=== PATIENT | female | born 1965 | race Caucasian/White ===

== ENCOUNTER 2019-06-15 14:16 | Outpatient (CLI) | payer MEDICARE, SELFPAY | END 2019-06-15 14:17 | disposition home or self-care (01) | LOC: ONCMED 14:20 | PROVIDERS: Family Provider Family Medicine; PCP Family Medicine; Visit Provider Nurse Practitioner | DX: Z45.2 Encounter for adjustment and management of vascular access device (principal) | CPT/HCPCS: 96523 ==

== ENCOUNTER 2019-07-28 07:58 | Outpatient (CLI) | payer MEDICARE, SELFPAY ==
[2019-07-28 08:29] LABS: Basophils % 0.3 %; Eosinophils # 0.2 10^3/uL (0.0-0.8); Eosinophils % 3.1 %; Hematocrit 35.2 % (37.0-47.0); Hemoglobin 11.5 g/dL (11.5-15.3); Lymphocytes # 2.3 10^3/uL (0.8-4.8); Lymphocytes % 39.9 %; Mean Corpuscular HGB Conc 32.7 g/dL (30.0-36.0); Mean Corpuscular Hemoglobin 32.4 pg (28.0-34.0); Mean Corpuscular Volume 99.2 fL (81-99); Monocytes # 0.5 10^3/uL (0.2-0.9); Monocytes % 7.7 %; Neutrophils # 2.8 10^3/uL (1.8-7.7); Neutrophils % 48.7 %; Nucleated Red Blood Cells % 0 %; Platelet Count 226 10^3/cmm (130-400); Red Blood Count 3.55 10^6/uL (4.1-5.3); Red Cell Distribution Width 14.4 % (12.1-15.1); White Blood Count 5.8 10^3/uL (4.0-10.0)
[2019-07-28 08:35] LABS: Alanine Aminotransferase 26 U/L (0-33); Albumin Level 4.5 g/dL (3.5-5.2); Alkaline Phosphatase 84 IU/L (35-105); Anion Gap 14.1 (5-19); Aspartate Amino Transferase 21 U/L (0-32); Blood Urea Nitrogen 11 mg/dL (6-20); Calcium 9.6 mg/dL (8.5-10.5); Carbon Dioxide 28 mmol/L (22-29); Chloride 100 mmol/L (98-107); Glomerular Filtration Rate 74.5 mL/min (90-130); Glucose 109 mg/dL (65-115); Potassium 4.1 mmol/L (3.5-5.1); Sodium 138 mmol/L (136-145); Total Bilirubin 0.2 mg/dL (0.15-1.2); Total Protein 7.5 g/dL (6.6-8.7)
[2019-07-28 08:58] LABS: Slide Review Slide Review Perform
== END 2019-07-28 07:59 | disposition home or self-care (01) ==
LOC: ONCMED 08:00
PROVIDERS: Family Provider Family Medicine; PCP Family Medicine; Visit Provider Internal Medicine Medical Oncology
DX: C34.31 Malignant neoplasm of lower lobe, right bronchus or lung (principal); C34.90 Malignant neoplasm of unspecified part of unspecified bronchus or lung
CPT/HCPCS: 36415; 36591; 71260; 80053; 85025

== ENCOUNTER 2019-07-28 08:49 | Outpatient (CLI) | payer MEDICARE, SELFPAY ==
--- NOTE | 2019-07-28 08:59 | CT_ITS ---
WS: [id number] CT CHEST TECHNIQUE: Contrast enhanced CT of the chest with coronal and sagittal reformatted images. CLINICAL INFORMATION: LUNG CANCER COMPARISON: January 04, 2019 DLP: 533.[address] scans at [facility] use at least one of these dose optimization techniques: automat ed exposure control; mA and/or kV adjustment per patient size (includes targeted exams where dose is matched to clinical indication); or iterative reconstruction. FINDINGS: Again seen is persistent soft tissue thickening and bronchovascular thickening along the right hilum. This is unchanged in appearance since the prior examination. No progressive mediastinal or hilar lym phadenopathy. No new parenchymal abnormalities. No new pulmonary infiltrates. Proximal main pulmonary arteries are normal. Normal caliber thoracic aorta. Normal descending thoraci c aorta. Normal GE junction. Thyroid gland is normal. No anterior mediastinal lymphadenopathy. No left hilar lymphadenopathy. Mode rate thoracic curve convex right. A few Schmorl's nodes in the mid and lower thoracic spine. No axill dion lymphadenopathy. CT/CT chest w con* [id number] IMPRESSION: 1. Stable soft tissue and bronchovascular thickening involving the right hilum . This is unchanged appearance since the prior examinations. 2. No new parenchymal abnormalities. 3. No mediastinal or hilar lymphadenopathy. 4. No other significant changes.
[2019-07-28] MEDS: iohexol 300 mg/mL 100 mL Btl IV (09:34)
== END 2019-07-28 08:50 | disposition home or self-care (01) ==
PROVIDERS: Family Provider Family Medicine; PCP Family Medicine; Visit Provider Internal Medicine Medical Oncology
DX: C34.90 Malignant neoplasm of unspecified part of unspecified bronchus or lung (principal)
CPT/HCPCS: 36591; 71260

== ENCOUNTER 2019-08-02 12:24 | Outpatient (CLI) | payer MEDICARE, SELFPAY ==
[2019-08-02 15:25] LABS: Iron 78 ug/dL (37-145); Percent Saturation 27.1 % (20-50); Thyroid Stimulating Hormone 2.65 uIU/mL (0.27-4.20); Total Iron Binding Capacity 287 mcg/dl; Unsaturated Iron Binding 209 ug/dL (112-347); Vitamin B12 1226 pg/mL (232-1245)
--- NOTE | 2019-08-06 13:23 | ONC FU_ITS ---
Dr. Lyle Patient Follow-Up Note Patient: Dali Veliz Unit #: [id number]: 1965 Dicatated By: Triston Lyle M.D.Date of Visit:Aug 02, 2019 Onc Med Follow-up/Prog Note Chief Complaint: Lung cancer. 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 On 12/31/2015 she was admitted to the hospital after presenting to the emergency room with confusion. She had significant hyponatremia with a serum sodium of 115 mmol/L. Chest x-ray was suspicious for consolidation at the right lung base. And chest CT showed near complete atelectasis and consolidation of the right lower lobe with suspected right hilar adenopathy. The hyponatremia resolved with IV replacement, and she was discharged on oral Levaquin. She was readmitted on 01/10/2016 with dizziness and numbness in the lower extremities associated with recurrence of the hyponatremia. She was then transferred to [facility] in [place]. She underwent bronchoscopy with endobronchial biopsy from the right lower lobe. 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 During the hospitalization she was treated with tolvaptan, and at discharge the sodium was normal at 138 mmol/L. Staging CT chest/abdomen/pelvis showed right hilar mass/adenopathy encasing the right bronchovascular structures with extension along the course of the right lower lobe bronchus. It appeared to measure 5.9 x 3.7 cm. Subcentimeter satellite nodules were noted within the superior segment of the right lower lobe and there are also scattered interstitial opacities within the lateral right lower lobe. These were felt to be nonspecific, possibly representing infectious or inflammatory foci, lymphangitic spread could not be excluded. There is no evidence of any other metastatic disease on those studies. MRI of the brain showed minimal chronic white matter ischemic changes with no evidence of metastatic involvement. She had further staging with PET/CT on 01/20/2016. That study showed FDG avid mass surrounding the bronchovascular bundle the right lower lobe. It measured 3.7 x 4.2 x 6.8 cm. It did appear to come within 2 cm of the debby. There was no evidence of any metastatic involvement. She began a course of chemotherapy with cisplatin/etoposide, cycle 1 day 1 on 01/31/2016. She also was referred to Dr. Aparicio for concurrent radiation, which she started on 02/06/2016. She was hospitalized on 02/13/2016 with UTI and sepsis. She was severely neutropenic with ANC 0. She was treated with cefepime and vancomycin and she was given 3 days of Neupogen. Her neutropenia resolved and she also improved clinically as her sepsis resolved. She was anemic and required 1 unit of PRBC's. She was also found to have recurrence of SIADH/hyponatremia. Her urine culture grew out Escherichia coli sensitive to Bactrim, and she was discharged with 7 days of Bactrim on 02/16/2016. She recovered uneventfully, and she was then able to continue her treatment. She was given a dose reduction with the second cycle, and thereafter she tolerated the chemotherapy well. She completed radiation to the right lung on 03/28/2016 to a total dose of 6600 cGy. She completed her 6th cycles of chemotherapy on 05/15 - 05/17/2016. Her restaging CT scan of the chest, abdomen, and pelvis performed on 06/10/2016 showed no evidence for recurrent pulmonary mass and no evidence of metastatic disease. She was then given prophylactic cranial radiation, which she completed on 07/01/2016 to a total dose of [address] of the chest on 11/29/2016 showed no evidence of disease progression. There were unchanged right perihilar upper, middle, and lower lobe post therapeutic changes. Repeat chest CT on 06/26/2017 showed no evidence of recurrence/progression of the lung cancer. Perihilar posttherapeutic changes appeared stable. She continued observation/expectant management. Her other medical illnesses include GERD, mild degenerative arthritis, and chronic anxiety. She has a history of nephrolithiasis. She has history of smoking 1 pack of cigarettes daily for 30 years. She has quit. INTERIM HISTORY: CT of the chest on 12/18/2017 showed stable post therapeutic changes over the right hilum and proximal right upper and right lower lobe bronchopulmonary structures. There was no adenopathy noted. There was no evidence of metastatic involvement in the liver or adrenal glands and there was no evidence of osteoblastic or osteolytic bone disease. On 06/13/2018 she presented to the emergency room with fever and cough. Chest x-ray showed no acute findings. Influenza serology was negative. She was given antibiotic coverage with cephalexin, and her symptoms did improve. She did develop a rash in the abdominal area from the antibiotic. Her surveillance chest CT on 06/26/2018 showed new micronodular infiltrates in the inferior right upper lobe along the fissure and about the right hilum. There were additional nodular infiltrates in the superior segment of the right lower lobe. Also noted was bronchovascular thickening along the right hilum and infrahilar region. All of this appeared significantly progressed compared to the prior study. The findings were consistent with infectious etiology but with recurrent/progressive disease not excluded. As her clinical status at that point appeared stable, I had just recommend close observation. Her repeat chest CT on 01/04/2019 showed resolution of the previously described micronodular infiltrates along the fissure. There was persistent soft tissue and bronchovascular thickening involving the right hilum. There was no mediastinal or hilar lymphadenopathy noted. Overall, there was no evidence for recurrence/progression of the lung cancer and no evidence of other acute findings. She continued on observation/expectant management. Surveillance chest CT on 07/28/2019 soft tissue and bronchovascular thickening involving the right hilum which appeared unchanged since the prior studies. There were no new parenchymal abnormalities noted and there was no mediastinal or hilar lymphadenopathy noted. She is seen for a follow-up visit. She has been feeling pretty good generally, though she does complain that she is more fatigued, particularly in the evenings. She has good appetite. She has continued to gain weight. She has not had fever. She sometimes feels cold in the evening and she tends to have sweating under her arms at night. She has had to have antibiotic therapy for sinus infection. She does not complain of shortness of breath, cough, or chest pain. She has had some acid reflux. Bowel function has been okay. Her urination is sometimes slow, and she does have some leakage. Her joints crack and pop and she has pain from her ankles to her knees, but mainly just in the mornings. She has sinus headache. She is starting to get some numbness/tingling in her hands and feet. Medications: B-12 1 (500 mcg) Tablet Oral daily, Biotin 1 (36656 mcg) Capsule Oral daily, Docusate Calcium 1 (240 mg) Capsule Oral PRN, Flonase 2 spray(s) (of 50 mcg/act) Suspension Nasal four times a day PRN, Furosemide 1 (40 mg) Tablet Oral daily PRN, Gabapentin 1 Tablet (of 300 mg) Oral b.i.d. PRN, Hair Skin & Nails Gummies 2 (1250-7.5-7.5 mcg-mg-unt) Tablet, chewable Oral daily, Lyrica 1 (75 mg) Capsule Oral at bedtime, Multivital-M 1 Tablet Oral daily Allergies: Aspirin, Keflex, Levaquin, Morphine Sulfate, Penicillin V Potassium, and Vancomycin HCl. Review of Systems: Constitutional - Her energy is low in the afternoons. She does light work at home. Her appetite is good and her weight is up 6 pounds since her last visit. No fever, chills or hot flashes. She has sweating at night under her arms. ECOG score is 1, ENMT - She has had two sinus infections this year. She is not currently having any symptoms. No mouth sores. No sore throat or difficulty swallowing, Hematologic/Lymphatic - No abnormal bruising or bleeding, Respiratory - No shortness of breath. No cough. No pleuritic pain or hemoptysis, Cardiovascular - No angina pain. No palpitations, Gastrointestinal - No nausea or vomiting. No heartburn or acid reflux. No diarrhea or constipation. No blood in the stool or black stools, Genitourinary (F) - No dysuria or hematuria. No urinary frequency. No urgency or incontinence, Musculoskeletal - She has pain in her feet and ankles in the mornings, Integumentary - No skin complications, Neurologic - No headache or dizziness. She quit taking the gabapentin a couple of months ago. The numbness and tingling has come back in her hands and feet, Psychiatric - She has some anxiety and depression. She has some trouble sleeping at night, because of her afternoon naps. Vital Signs: Performed on Aug 02, 2019 12:31 Height - 64.00 in Weight - 162.2 lbs (HIGH) BSA - 1.79 sq.m BMI - 27.84 Temperature - 97.1 F (LOW) Pulse - 115 /min (HIGH) Respiration - 18 /min BP - 148/79 mm(hg) (HIGH) O2 Sat - 100 % Pain - 0 Physical Examination: Constitutional - She looks pretty good generally, Eyes - Sclerae nonicteric. Conjunctivae clear, ENMT - No lesions noted in the oral cavity, Hematologic/Lymphatic - No cervical, clavicular, or axillary adenopathy, Respiratory - Lungs sound clear, Cardiovascular - Heart rhythm is regular with a mild tachycardia. There is no murmur, gallop, or rub noted, Abdomen - Mildly distended but soft. Liver and spleen are not enlarged. There is no abdominal mass or ascites noted and there is no inguinal adenopathy, Extremities - Slight edema. There are a few scattered ecchymoses present, Neurologic - No focal neurologic deficits noted. Lab/Imaging: Test performed on Aug 02, 2019 14:15 Iron 78 ug/dL TSH 2.65 uIU/mL Vitamin B12 1226 pg/mL UIBC 209 ug/dL Test performed on Jul 28, 2019 08:10 Sodium 138 mmol/L Potassium 4.1 mmol/L Chloride 100 mmol/L CO2 28 mmol/L Anion Gap 14.1 BUN 11 mg/dL Creatinine 0.8 mg/dL Cr Clearance (Est) 92.29 mL/min eGFR 74.5 mL/min Glucose 109 mg/dL Calcium 9.6 mg/dL Protein, Total 7.5 g/dL Albumin 4.5 g/dL Globulin 3.0 g/dL Bilirubin, Total 0.2 mg/dL ALT (SGPT) 26 U/L AST (SGOT) 21 U/L Alkaline Phosphatase 84 IU/L WBC 5.8 10 3/uL RBC 3.55 10 6/uL HGB 11.5 g/dL HCT 35.2 % MCV 99.2 fL MCH 32.4 pg MCHC 32.7 g/dL RDW 14.4 % Platelet Count 226 10 3/cmm MPV 11.0 fL Neutrophils 2.8 10 3/uL Lymphocytes 2.3 10 3/uL Monocytes 0.5 10 3/uL Eosinophils 0.2 10 3/uL Basophils 0.0 10 3/uL Neutrophil % 48.7 % Lymphocyte % 39.9 % Monocyte % 7.7 % Eosinophil % 3.1 % Basophils % 0.3 % CBC Slide Review Slide Review Perform SLIDE REVIEW AGREES WITH AUTOMATED RESULTS Impression: 1. 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 Her disease appeared to be at least stage IIIA (T4, N0, M0), but with limited stage disease clinically. 2. She had associated hyponatremia, presumably SIADH. 3. She underwent definitive chemoradiation utilizing cisplatin/etoposide for chemosensitization. Cycle 1 of chemotherapy began 01/31/2016. It was complicated by severe neutropenia with associated urinary tract infection/sepsis. She recovered uneventfully and she was able to continue her treatment. She received a dose reduction with the second cycle of chemotherapy, and thereafter she tolerated it well. 4. She completed radiation to the right lung on 03/28/2016 to a total dose of 6600 cGy. She completed 6 cycles of chemotherapy in May 2016. She appeared to have a complete response by restaging CT scans in June 2016. 5. She was then given prophylactic cranial irradiation, completed on 07/01/2016 to a total dose of 2500 cGy. Her other medical illnesses include: 6. GERD. 7. Mild degenerative arthritis. 8. History of nephrolithiasis. 9. Chronic anxiety. She has been followed on observation/expectant management following completion of her chemotherapy and radiation. During follow-up her surveillance CT scans have shown post-therapeutic changes in the right perihilar region, but no evidence of disease progression. On 06/13/2018 she presented to the emergency room with cough and fever. Chest x-ray that time showed no acute infiltrate. Influenza serology was negative. She was given empiric antibiotic coverage with cephalexin, and her symptoms have improved. Her CT scan showed new infiltrates in the right lung. These appeared to be most consistent with infectious etiology, but with recurrent/progressive disease not excluded. Her surveillance chest CT in December 2018 showed resolution of the previously described micronodular infiltrates along the fissure. There is no evidence of recurrence/progression of the lung cancer. She continued on observation/expectant management. During follow-up she has had some increasing fatigue. She has continued to gain weight, which may be a contributing factor. She has slightly anemic. Overall, though, she is still doing pretty well clinically. There has been no evidence of recurrence of the lung cancer. Plan: She remains on observation/expectant management with the lung cancer. I will see her again in 3 months. In the meantime, I will have her try Lyrica for the neuropathy symptoms. Signed By: Triston Lyle M.D. <<Signature on File>>
== END 2019-08-02 12:25 | disposition home or self-care (01) ==
LOC: ONCMED 12:26
PROVIDERS: Family Provider Family Medicine; PCP Family Medicine; Visit Provider Internal Medicine Medical Oncology
DX: Z08 Encounter for follow-up examination after completed treatment for malignant neoplasm (principal); Z85.118 Personal history of other malignant neoplasm of bronchus and lung; K21.9 Gastro-esophageal reflux disease without esophagitis; M19.90 Unspecified osteoarthritis, unspecified site; F41.9 Anxiety disorder, unspecified; D64.9 Anemia, unspecified; G62.9 Polyneuropathy, unspecified; Z92.3 Personal history of irradiation; Z87.442 Personal history of urinary calculi; Z92.21 Personal history of antineoplastic chemotherapy; Z79.899 Other long term (current) drug therapy
CPT/HCPCS: 36591; 82607; 83540; 83550; 84443; 99214

== ENCOUNTER 2019-09-27 14:32 | Outpatient (CLI) | payer MEDICARE, SELFPAY | END 2019-09-27 14:33 | disposition home or self-care (01) | LOC: ONCMED 14:34 | PROVIDERS: Family Provider Family Medicine; PCP Family Medicine; Visit Provider Internal Medicine Medical Oncology | DX: Z45.2 Encounter for adjustment and management of vascular access device (principal) | CPT/HCPCS: 96523 ==

== ENCOUNTER → 2019-10-06 12:09 | Outpatient (BNVA) | payer MEDICARE, SELFPAY | PROVIDERS: Family Provider Family Medicine; PCP Family Medicine; Visit Provider Obstetrics & Gynecology | DX: N87.1 Moderate cervical dysplasia (principal) | CPT/HCPCS: 87624; 88175 ==

== ENCOUNTER → 2019-10-07 08:17 | Outpatient (BNVA) | payer MEDICARE, SELFPAY | PROVIDERS: Family Provider Family Medicine; PCP Family Medicine; Visit Provider Obstetrics & Gynecology | DX: N87.1 Moderate cervical dysplasia (principal) | CPT/HCPCS: 88305 ==

== ENCOUNTER 2019-11-02 12:40 | Outpatient (CLI) | payer MEDICARE, SELFPAY ==
[2019-11-02 13:26] LABS: Alanine Aminotransferase 17 U/L (0-33); Albumin Level 4.2 g/dL (3.5-5.2); Alkaline Phosphatase 70 IU/L (35-105); Anion Gap 14.8 (5-19); Aspartate Amino Transferase 16 U/L (0-32); Blood Urea Nitrogen 12 mg/dL (6-20); Calcium 9.8 mg/dL (8.5-10.5); Carbon Dioxide 26 mmol/L (22-29); Chloride 101 mmol/L (98-107); Globulin 2.8 g/dL (1.3-4.6); Glomerular Filtration Rate 86.9 mL/min (90-130); Glucose 110 mg/dL (65-115); Osmolality Calculated 283 mOsm/kg (285-295); Potassium 3.8 mmol/L (3.5-5.1); Sodium 138 mmol/L (136-145); Total Bilirubin 0.2 mg/dL (0.15-1.2)
[2019-11-02 13:34] LABS: Basophils % 0.3 %; Eosinophils # 0.1 10^3/uL (0.0-0.8); Eosinophils % 1.9 %; Hematocrit 34.8 % (37.0-47.0); Hemoglobin 11.1 g/dL (11.5-15.3); Lymphocytes # 2.5 10^3/uL (0.8-4.8); Mean Corpuscular HGB Conc 31.9 g/dL (30.0-36.0); Mean Corpuscular Hemoglobin 33.1 pg (28.0-34.0); Mean Corpuscular Volume 103.9 fL (81-99); Mean Platelet Volume 11.1 fL (7.4-10.4); Monocytes # 0.5 10^3/uL (0.2-0.9); Monocytes % 7.8 %; Neutrophils # 3.2 10^3/uL (1.8-7.7); Neutrophils % 50.8 %; Nucleated Red Blood Cells % 0 %; Platelet Count 214 10^3/cmm (130-400); Red Blood Count 3.35 10^6/uL (4.1-5.3); Red Cell Distribution Width 14.4 % (12.1-15.1); White Blood Count 6.3 10^3/uL (4.0-10.0)
[2019-11-02 14:21] LABS: Slide Review Slide Review Perform
--- NOTE | 2019-11-06 11:59 | ONC FU_ITS ---
Dr. Lyle Patient Follow-Up Note Patient: Dali Veliz Unit #: [id number]: 1965 Dicatated By: Triston Lyle M.D.Date of Visit:November 02, 2019 Onc Med Follow-up/Prog Note Chief Complaint: Lung cancer. 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 On 12/31/2015 she was admitted to the hospital after presenting to the emergency room with confusion. She had significant hyponatremia with a serum sodium of 115 mmol/L. Chest x-ray was suspicious for consolidation at the right lung base. And chest CT showed near complete atelectasis and consolidation of the right lower lobe with suspected right hilar adenopathy. The hyponatremia resolved with IV replacement, and she was discharged on oral Levaquin. She was readmitted on 01/10/2016 with dizziness and numbness in the lower extremities associated with recurrence of the hyponatremia. She was then transferred to [facility] in [place]. She underwent bronchoscopy with endobronchial biopsy from the right lower lobe. 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 During the hospitalization she was treated with tolvaptan, and at discharge the sodium was normal at 138 mmol/L. Staging CT chest/abdomen/pelvis showed right hilar mass/adenopathy encasing the right bronchovascular structures with extension along the course of the right lower lobe bronchus. It appeared to measure 5.9 x 3.7 cm. Subcentimeter satellite nodules were noted within the superior segment of the right lower lobe and there are also scattered interstitial opacities within the lateral right lower lobe. These were felt to be nonspecific, possibly representing infectious or inflammatory foci, lymphangitic spread could not be excluded. There is no evidence of any other metastatic disease on those studies. MRI of the brain showed minimal chronic white matter ischemic changes with no evidence of metastatic involvement. She had further staging with PET/CT on 01/20/2016. That study showed FDG avid mass surrounding the bronchovascular bundle the right lower lobe. It measured 3.7 x 4.2 x 6.8 cm. It did appear to come within 2 cm of the edbby. There was no evidence of any metastatic involvement. She began a course of chemotherapy with cisplatin/etoposide, cycle 1 day 1 on 01/31/2016. She also was referred to Dr. Aparicio for concurrent radiation, which she started on 02/06/2016. She was hospitalized on 02/13/2016 with UTI and sepsis. She was severely neutropenic with ANC 0. She was treated with cefepime and vancomycin and she was given 3 days of Neupogen. Her neutropenia resolved and she also improved clinically as her sepsis resolved. She was anemic and required 1 unit of PRBC's. She was also found to have recurrence of SIADH/hyponatremia. Her urine culture grew out Escherichia coli sensitive to Bactrim, and she was discharged with 7 days of Bactrim on 02/16/2016. She recovered uneventfully, and she was then able to continue her treatment. She was given a dose reduction with the second cycle, and thereafter she tolerated the chemotherapy well. She completed radiation to the right lung on 03/28/2016 to a total dose of 6600 cGy. She completed her 6th cycles of chemotherapy on 05/15 - 05/17/2016. Her restaging CT scan of the chest, abdomen, and pelvis performed on 06/10/2016 showed no evidence for recurrent pulmonary mass and no evidence of metastatic disease. She was then given prophylactic cranial radiation, which she completed on 07/01/2016 to a total dose of [address] of the chest on 11/29/2016 showed no evidence of disease progression. There were unchanged right perihilar upper, middle, and lower lobe post therapeutic changes. Repeat chest CT on 06/26/2017 showed no evidence of recurrence/progression of the lung cancer. Perihilar posttherapeutic changes appeared stable. She continued observation/expectant management. Her other medical illnesses include GERD, mild degenerative arthritis, and chronic anxiety. She has a history of nephrolithiasis. She has history of smoking 1 pack of cigarettes daily for 30 years. She has quit. INTERIM HISTORY: CT of the chest on 12/18/2017 showed stable post therapeutic changes over the right hilum and proximal right upper and right lower lobe bronchopulmonary structures. There was no adenopathy noted. There was no evidence of metastatic involvement in the liver or adrenal glands and there was no evidence of osteoblastic or osteolytic bone disease. On 06/13/2018 she presented to the emergency room with fever and cough. Chest x-ray showed no acute findings. Influenza serology was negative. She was given antibiotic coverage with cephalexin, and her symptoms did improve. She did develop a rash in the abdominal area from the antibiotic. Her surveillance chest CT on 06/26/2018 showed new micronodular infiltrates in the inferior right upper lobe along the fissure and about the right hilum. There were additional nodular infiltrates in the superior segment of the right lower lobe. Also noted was bronchovascular thickening along the right hilum and infrahilar region. All of this appeared significantly progressed compared to the prior study. The findings were consistent with infectious etiology but with recurrent/progressive disease not excluded. As her clinical status at that point appeared stable, I had just recommend close observation. Her repeat chest CT on 01/04/2019 showed resolution of the previously described micronodular infiltrates along the fissure. There was persistent soft tissue and bronchovascular thickening involving the right hilum. There was no mediastinal or hilar lymphadenopathy noted. Overall, there was no evidence for recurrence/progression of the lung cancer and no evidence of other acute findings. Surveillance chest CT on 07/28/2019 soft tissue and bronchovascular thickening involving the right hilum which appeared unchanged since the prior studies. There were no new parenchymal abnormalities noted and there was no mediastinal or hilar lymphadenopathy noted. She continued on observation/expectant management. She is seen for a follow-up visit. She has been feeling pretty good generally, though she complains that she is still wearing out easily. She is able to do light work. ECOG score is 1. She has good appetite. She has been able to lose a little weight. She does not have fever or hot flashes. She has having a little bit of sweating at night. She is scheduled to have a hysterectomy, apparently for a persistently abnormal cervical cytology. She does not complain of shortness of breath or cough, and she has not been having chest pain. She currently has no GI or complaints. She occasionally has pain in her left leg, and it stays slightly swollen. She has no other joint or bone pain. She continues to have numbness and tingling in her hands and feet. She had stopped taking Lyrica, and she is now wanting to go back on gabapentin. Medications: B-12 1 (500 mcg) Tablet Oral daily, Biotin 1 (04799 mcg) Capsule Oral daily, Docusate Calcium 1 (240 mg) Capsule Oral PRN, Flonase 2 spray(s) (of 50 mcg/act) Suspension Nasal four times a day PRN, Furosemide 1 (40 mg) Tablet Oral daily PRN, Hair Skin & Nails Gummies 2 (1250-7.5-7.5 mcg-mg-unt) Tablet, chewable Oral daily, Lyrica 1 (75 mg) Capsule Oral at bedtime, Multivital-M 1 Tablet Oral daily Allergies: Aspirin, Keflex, Levaquin, Morphine Sulfate, Penicillin V Potassium, and Vancomycin HCl. Review of Systems: Constitutional - She still wears out easily, but she does light work at home. Her appetite is good. She has been able to lose a little weight. No fever or hot flashes. She has a little bit of sweating at night. ECOG score is 1, ENMT - She has sinus congestion/drainage. She has dry mouth. No sore throat or difficulty swallowing, Hematologic/Lymphatic - No abnormal bruising or bleeding, Respiratory - No shortness of breath. No cough. No pleuritic pain or hemoptysis, Cardiovascular - No angina pain. No palpitations, Gastrointestinal - No nausea or vomiting. No heartburn or acid reflux. No diarrhea or constipation. No blood in the stool or black stools, Genitourinary (F) - No dysuria or hematuria. No urinary frequency. No urgency or incontinence, Musculoskeletal - She occasionally has pain in her left leg, Integumentary - No skin complications, Neurologic - She occasionally has headache. No dizziness. She occasionally has numbness and tingling in her hands and feet, Psychiatric - She has some anxiety. She has been sleeping better. Vital Signs: Performed on November 02, 2019 14:06 Height - 64.00 in Weight - 156.8 lbs (LOW) BSA - 1.76 sq.m BMI - 26.91 Temperature - 97.3 F (LOW) Pulse - 104 /min (HIGH) Respiration - 20 /min BP - 122/80 mm(hg) O2 Sat - 100 % Pain - 0 Physical Examination: Constitutional - She looks pretty good generally, Eyes - Sclerae nonicteric. Conjunctivae clear, ENMT - No lesions noted in the oral cavity, Hematologic/Lymphatic - No cervical, clavicular, or axillary adenopathy, Respiratory - Lungs sound clear, Cardiovascular - Heart rhythm is regular with a mild tachycardia. There is no murmur, gallop, or rub noted, Abdomen - Mildly distended but soft. Liver and spleen are not enlarged. There is no abdominal mass or ascites noted and there is no inguinal adenopathy, Extremities - There is mild swelling of the left leg. There is some mild venous distention with small varices in both lower legs, Neurologic - No focal neurologic deficits noted. Lab/Imaging: Test performed on November 02, 2019 12:51 Sodium 138 mmol/L Potassium 3.8 mmol/L Chloride 101 mmol/L CO2 26 mmol/L Anion Gap 14.8 BUN 12 mg/dL Creatinine 0.7 mg/dL Cr Clearance (Est) 101.96 mL/min eGFR 86.9 mL/min Glucose 110 mg/dL Calcium 9.8 mg/dL Protein, Total 7.0 g/dL Albumin 4.2 g/dL Globulin 2.8 g/dL Bilirubin, Total 0.2 mg/dL ALT (SGPT) 17 U/L AST (SGOT) 16 U/L Alkaline Phosphatase 70 IU/L WBC 6.3 10 3/uL RBC 3.35 10 6/uL HGB 11.1 g/dL HCT 34.8 % MCV 103.9 fL MCH 33.1 pg MCHC 31.9 g/dL RDW 14.4 % Platelet Count 214 10 3/cmm MPV 11.1 fL Neutrophils 3.2 10 3/uL Lymphocytes 2.5 10 3/uL Monocytes 0.5 10 3/uL Eosinophils 0.1 10 3/uL Basophils 0.0 10 3/uL Neutrophil % 50.8 % Lymphocyte % 39.0 % Monocyte % 7.8 % Eosinophil % 1.9 % Basophils % 0.3 % CBC Slide Review Slide Review Perform SLIDE REVIEW AGREES WITH AUTOMATION Impression: 1. 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 Her disease appeared to be at least stage IIIA (T4, N0, M0), but with limited stage disease clinically. 2. She had associated hyponatremia, presumably SIADH. 3. She underwent definitive chemoradiation utilizing cisplatin/etoposide for chemosensitization. Cycle 1 of chemotherapy began 01/31/2016. It was complicated by severe neutropenia with associated urinary tract infection/sepsis. She recovered uneventfully and she was able to continue her treatment. She received a dose reduction with the second cycle of chemotherapy, and thereafter she tolerated it well. 4. She completed radiation to the right lung on 03/28/2016 to a total dose of 6600 cGy. She completed 6 cycles of chemotherapy in May 2016. She appeared to have a complete response by restaging CT scans in June 2016. 5. She was then given prophylactic cranial irradiation, completed on 07/01/2016 to a total dose of 2500 cGy. Her other medical illnesses include: 6. GERD. 7. Mild degenerative arthritis. 8. History of nephrolithiasis. 9. Chronic anxiety. She has been followed on observation/expectant management following completion of her chemotherapy and radiation. During follow-up her surveillance CT scans have shown post-therapeutic changes in the right perihilar region, but no evidence of disease progression. On 06/13/2018 she presented to the emergency room with cough and fever. Chest x-ray that time showed no acute infiltrate. Influenza serology was negative. She was given empiric antibiotic coverage with cephalexin, and her symptoms have improved. Her CT scan showed new infiltrates in the right lung. These appeared to be most consistent with infectious etiology, but with recurrent/progressive disease not excluded. Her surveillance chest CT in December 2018 showed resolution of the previously described micronodular infiltrates along the fissure. There is no evidence of recurrence/progression of the lung cancer. She continued on observation/expectant management. During follow-up she has continued to have fatigue and she has persistent neuropathy symptoms. She is now scheduled to undergo hysterectomy, apparently for abnormal cervical cytology. She otherwise appears stable clinically. Thus far there has been no evidence of recurrence/progression of the lung cancer. Plan: She remains on observation/expectant management with the lung cancer. She will restart gabapentin at 300 mg twice daily. I will see her again in 6 months, or sooner as needed. Signed By: Triston Lyle M.D. <<Signature on File>>
== END 2019-11-02 12:41 | disposition home or self-care (01) ==
LOC: ONCMED 12:42
PROVIDERS: PCP Family Medicine; Visit Provider Internal Medicine Medical Oncology
DX: Z08 Encounter for follow-up examination after completed treatment for malignant neoplasm (principal); Z85.118 Personal history of other malignant neoplasm of bronchus and lung; G62.9 Polyneuropathy, unspecified; R87.619 Unspecified abnormal cytological findings in specimens from cervix uteri; K21.9 Gastro-esophageal reflux disease without esophagitis; M19.90 Unspecified osteoarthritis, unspecified site; F41.9 Anxiety disorder, unspecified; Z92.3 Personal history of irradiation; Z87.442 Personal history of urinary calculi; Z92.21 Personal history of antineoplastic chemotherapy; Z79.899 Other long term (current) drug therapy
CPT/HCPCS: 36591; 80053; 85025; 99214

== ENCOUNTER 2019-12-06 14:29 | Outpatient (CLI) | payer MEDICARE, SELFPAY | END 2019-12-06 14:30 | disposition home or self-care (01) | LOC: ONCMED 14:34 | PROVIDERS: PCP Family Medicine; Visit Provider Internal Medicine Medical Oncology | DX: Z45.2 Encounter for adjustment and management of vascular access device (principal) | CPT/HCPCS: 96523 ==

== ENCOUNTER 2020-01-05 14:37 | Outpatient (CLI) | payer MEDICARE, SELFPAY | END 2020-01-05 14:38 | disposition home or self-care (01) | LOC: ONCMED 14:41 | PROVIDERS: PCP Family Medicine; Visit Provider Internal Medicine Medical Oncology | DX: Z45.2 Encounter for adjustment and management of vascular access device (principal); C34.31 Malignant neoplasm of lower lobe, right bronchus or lung; E22.2 Syndrome of inappropriate secretion of antidiuretic hormone; E87.1 Hypo-osmolality and hyponatremia; K21.9 Gastro-esophageal reflux disease without esophagitis; F41.9 Anxiety disorder, unspecified | CPT/HCPCS: 96523 ==

== ENCOUNTER 2020-01-13 08:56 | Inpatient (IN) | payer MEDICARE, SELFPAY ==
[2020-01-12 09:24] VITALS: BMI 27.3
--- NOTE | 2020-01-12 09:32 | PC.NURSE ---
PERSON TO VISIT- RITA MINA BOYFRIENKonrad,
--- NOTE | 2020-01-12 10:17 | ANES.PREANE2 ---
Pre-Anesthetic Assessment Pre-Anesthetic Assessment: Height/Weight: Height 1.6 m Weight 69.853 kg Preop Diagnosis: Abnormal Pap smear Proposed Procedure: Operation Date: 01/13/20 07:00 Proposed Procedures p Total Abdominal Hysterectomy LIANG/with Bilat salpingo oophorectomy 41188 N87.1(Not Applicable) - Mary Sherman MD Familial anesthetic complications: NOne Social: Social History: No alcohol and No tobacco Comment: former smoker Exam: Pre-Anes Outpt Exam: alert, oriented x 3, clear to auscultation bilaterally and regular rate & rhythm Airway: Cervical ROM: WNL MP: 2 Dentition: False Pulmonary: Comments: Hx lung cancer - no resection Anesthetic Plan: ASA status: 1 Anesthesia: General Risk of > 500 ml blood loss (7ml/kg in children): No PFSH Anesthesia PFSH: Medical History Lung cancer Diagnosed in 2015 after which she quit smoking cigarettes. She received chemotherapy and radiation starting in 2015 completed in 2017 under the care of Dr. Lyle and Dr. Aparicio her follow-up PET/CT scans have been negative and she sees Dr. Lyle every 6 months at this time. No pertinent past medical history Denies diabetes, asthma, hypertension, seizures, DVT/PE. PMD-Dr. Hendrickson Rhus dermatitis Surgical History History of kidney surgery (~2003) 2004-right kidney-done for some sort of blockage-midabdominal right-sided 10 cm scar is noted Port-A-Cath in place Chemotherapy port placed at [place], [place]. Dr. Garrett. She still has the port in place. S/P LEEP (~03/11/19) 03/11/2019---office LEEP procedure performed for SEBASTIAN-2 noted on ECC by Dr Merlos on at [facility]. Pathology showed no dysplasia S/P tubal ligation (~1986) 1986 done by her umbilicus Family History Brother Heart disease Mother Diabetes Stroke Hypertension Denies family history of Colon cancer Ovarian cancer Hyperlipidemia Breast cancer Uterine cancer Thyroid condition Social History Additional social history: - Tobacco Use: Quit in 2015 when she was diagnosed with lung cancer. Prior to that she started smoking at the age of 16 and smoked 1 pack of cigarettes a day. Alcohol Use: Denies Drug Use: Denies Work/Study Status: Disabled from lung cancer Data Anesthesia Cardiac Studies: No Data to Display
[2020-01-12 11:49] LABS: Basophils % 0.3 %; Eosinophils # 0.1 10^3/uL (0.0-0.8); Eosinophils % 1.9 %; Hematocrit 36.5 % (37.0-47.0); Hemoglobin 11.4 g/dL (11.5-15.3); Lymphocytes # 2.2 10^3/uL (0.8-4.8); Lymphocytes % 35.3 %; Mean Corpuscular HGB Conc 31.2 g/dL (30.0-36.0); Mean Corpuscular Hemoglobin 31.8 pg (28.0-34.0); Mean Platelet Volume 10.9 fL (7.4-10.4); Monocytes # 0.5 10^3/uL (0.2-0.9); Monocytes % 7.2 %; Neutrophils # 3.42 10^3/uL (1.8-7.7); Nucleated Red Blood Cells % 0 %; Platelet Count 223 10^3/cmm (130-400); Red Blood Count 3.58 10^6/uL (4.1-5.3); Red Cell Distribution Width 15.1 % (12.1-15.1); White Blood Count 6.2 10^3/uL (4.0-10.0)
[2020-01-13] VITALS (19 sets, daily range): BP systolic 126–165; BP diastolic 64–101; PULSE 84–100; RESP 14–20; TEMP 36.6–37.2; O2SAT 93–100
[2020-01-13] MEDS: sodium chloride 0.9% 1,000 ML 30 ML IV (06:35)
--- NOTE | 2020-01-13 06:42 | P.ANESUD_ITS ---
Pre-Anesthetic Update Pre-Anesthetic Assessment: Date of Surgery/Procedure: 01/13/20 Preop Malini gnosis: Abnormal Pap smear Proposed Procedure: Operation Date: 01/13/20 07:00 Proposed Procedures p Total Abdominal Hysterectomy LIANG/with Bilat salpingo oophorectomy 44623 N87.1(Not Applicable) - Mary Sherman MD Any changes to Pre-Anesthetic Assessment?: No Last Intake: Intake Last Liquid Date 01/12/20 Last Liquid Time 22:50 Last Solid Date 01/12/20 Last Solid Time 17:30 Labs Last 48hrs: Laboratory Results - last 48 hr 01/12/20 09:45 WBC 6.2 RBC 3.58 L Hgb 11.4 L Hct 36.5 L MCV 102.0 H MCH 31.8 MCHC 31.2 RDW 15.1 Plt Count 223 MPV 10.9 H Neut % (Auto) 55.0 Lymph % (Auto) 35.3 [place] % (Auto) 7.2 Eos % (Auto) 1.9 Baso % (Auto) 0.3 Neut # (Auto) 3.42 Lymph # (Auto) 2.2 [place] # (Auto) 0.5 Eos # (Auto) 0.1 Baso # (Auto) 0.0 Nucleated RBC % (a uto) 0 Nucleated RBCs # 0.0 Vitals: Temperature 98.1 F 01/13/20 06:02 Temperature Source Temporal Artery S can 01/13/20 06:02 Pulse Rate 96 01/13/20 06:02 Respiratory Rate 18 01/13/20 06:02 Blood Pressure 133/98 01/13/20 06:02 Blood Pressure Viviana n 109 01/13/20 06:02 Pulse Oximetry 96 01/13/20 06:02 Oxygen Delivery Me thod 01/13/20 06:02 Exam: Pre-Anes Outpt Exam: alert, oriented x 3, clear to auscultation bilaterally and regular rate & rhythm Cardiac Studies: No Data to Display
[2020-01-13] MEDS: scopolamine 1.5 Patch 1 PATCH TRANSDERMA (06:50)
--- NOTE | 2020-01-13 07:13 | P.HPUD_ITS ---
Surgery/Procedure H&P Update DATE OF PROCEDURE: January 13, 2020 DATE H&P PERFORMED: 01/05/20 H&P UPDATE INFORMATION: I have reviewed H&P completed within last 30 days, I have examined patient prior to procedure, No changes to prior documentation and H&P is in [facility] EMR on date indicated PREOP DIAGNOSIS: Abnormal Pap smear PLANNED PROCEDURE: Operation Date: 01/13/20 07:00 Proposed Procedures p Total Abdominal Hysterectomy LIANG/with Bilat salpingo oophorectomy 85517 N87.1(Not Applicable) - Mary Sherman MD
[2020-01-13] MEDS: fentaNYL 50 mcg/mL INJ 2mL IVP ×2 (09:37→09:45)
--- NOTE | 2020-01-13 09:47 | PM.OP ---
Operative Report Date of procedure: January 13, 2020 OPERATIVE REPORT Date of surgery: 01/13/2020 Date of dictation: 01/13/2020 Preoperative diagnosis: SEBASTIAN-2 with persistent abnormal Pap smears, no intravaginal cervix left Postoperative diagnosis/findings: Small uterus, normal tubes and ovaries bilaterally, omental adhesions onto the anterior abdominal wall. Procedure done: Total abdominal hysterectomy, bilateral salpingo-oophorectomy Specimens removed/disposition of specimens: Uterus, cervix, ovaries and tubes. Surgeon: Dr. Mary Merlos Global Engineering Manager: Brunilda Mckinney Anesthesia: General endotracheal tube anesthesia Estimated blood loss: 150 ml Intravenous fluids: 1200 mL of LR Urine output: 200 mL of clear urine at the end of procedure Medications: As per anesthesia records Complications: None, patient was extubated and taken to the recovery room in a stable condition. PROCEDURE: After consent was obtained patient was taken to the operating room where she was placed under general anesthesia. Sequential compression boots and Hernandez catheter were placed. She was prepped and draped in the usual sterile fashion in a dorsal supine position. A horizontal Pfannenstiel incision was made with a knife about 1 to 2 cm above the pubic symphysis. This was carried down to the fascia with electrocautery and a scalpel. The subcutaneous tissue was oozing and hemostasis was achieved with cautery. Fascia was incised in the midline and extended both laterally. Rectus muscles were in the midline. Peritoneum was identified and was sharply entered. Adhesions of the omentum were noted onto the peritoneum and this was taken down sharply as well as with cautery. Peritoneal incision was extended laterally. Good hemostasis was achieved. With this the bowel was packed away and pelvis was visualized. An O'Khoa-O'Jones retractor was placed. Normal bilateral tubes and ovaries noted bilaterally and small atrophic uterus seen. No other abnormalities were noted other than what was mentioned previously. The right ovarian vessels were identified and a window was made in the broad ligament under this and Z clamps were clamped over the IP ligament in a double fashion. The IP ligament was cut and then First a Yuliya stitch and then a free tie was placed . Good hemostasis was noted. The right round ligament was clamped cut and suture ligated with 0 Vicryl suture. The broad ligament was opened and the fallopian tube and ovarian ligament was clamped, cut and suture ligated with 0 Vicryl suture in a near and far fashion. It was tied with a free tie of 0 Vicryl suture. The broad ligament incision was extended inferiorly and carried over the lower uterine segment. No adhesions were noted from the bladder onto the uterus and the bladder was pushed down over the uterus without difficulty. The bladder was noted to be intact without any tears. The uterine vessels were were tied off. The left round ligament was clamped, cut and suture ligated with 0 Vicryl suture. The broad ligament was opened and the incision carried superiorly parallel to the left ovarian vessels. The ovarian ligament, fallopian tube was doubly clamped, cut and suture ligated with 0 Vicryl suture. The pedicle was tied with a free tie of 0 Vicryl suture. The broad ligament incision was extended inferiorly and carried over the lower uterine segment to meet with the dissection the contralateral side and a bladder flap was created. The bladder was then off from the cervix without any difficulty. The left uterine vessels were skeletonized clamped and tied off. Curved clamps were placed at the level of the internal os. These were cut, and then tied with 0 Vicryl suture bilaterally. The bladder was then sharply dissected away from the cervix until it was carried below the level of the cervix. The remaining portion of the parametria was then serially clamped, cut, and suture ligated with 0 Vicryl suture bilaterally until the bottom of the cervix was reached. At this point, sharply curved clamps were placed across the top of the vagina and the remaining portion of the cervix excised. With this the uterus and cervix were removed. The cervix was inspected and noted to be complete. The uterus and right ovary and tube were handed off. The corners of the cuff were secured with 0 Vicryl suture in a Yuliya fashion bilaterally. The remaining portion of the vaginal cuff was closed with 0 Vicryl suture in an interrupted [id number] fashion. The area was thoroughly inspected and noted to be hemostatic. It was irrigated and noted to be hemostatic. Attention was then turned towards the left fallopian tube and ovary. It was grasped with a Winder, IP ligament was in identified, the ureter was identified well away from the site of surgery. The IP ligament was then doubly clamped and suture ligated as well as free tied . With this the left fallopian tube and ovary was also removed and sent to pathology. Good hemostasis was noted at the IP ligament site bilaterally. Bilateral ureters were visualized. The pelvis was irrigated once again and small area of oozing near the left of was made hemostatic with a [id number] suture. With this good hemostasis was achieved. Surgicel was placed over the vaginal cuff. The abdominal retractor was removed. The laps were removed and counted x2 and were correct. The peritoneum was closed with 2-0 suture in a continuous fashion. The rectus muscle was reapproximated with mattress sutures. The fascia was closed with oh loop PDS in a continuous fashion. The subcutaneous layer was irrigated and noted to be hemostatic. It was reapproximated using 2-0 plain sutures in a continuous fashion. The skin was closed with 4-0 Monocryl in a subcuticular fashion. Pressure dressing was applied onto the abdomen. Lap, instrument and needle counts were correct x2. Patient was extubated without difficulty and taken to the recovery room in a stable condition. Hernandez catheter was left in place. Pre-op Diagnosis: Abnormal Pap smear
--- NOTE | 2020-01-13 09:55 | SUR.PHASEI ---
PT AWAKES TO VERBAL STIMULI EASILY, VSS ABD SOFT DRESSING REMAINS D/I LUIS CATH TO DD YELLOW URINE NOTED IN TUBING SMALL AMT IN DRAINAGE BAG, VSS PT C/O OF PAIN EARIER, SEE PAIN MEDS GIVEN PT NOW SLEEPS IF NOT DISTURBED IV PATENT TO RT CHEST PORT.BILAT SCDS ON .
--- NOTE | 2020-01-13 10:41 | SUR.PHASEI ---
1025 PT TO ROOM , PT ALERT TALKATIVE ON 3LNC PT SLID TO BED WITH ASSIST OF 4 STAFF, PT ASSISTS NEEDED ABD DRESSING D/I PT TAKING COUPLE OF ICE CHIPS PER PT REQUEST, PT VERBALIZED TO NURSING STAFF, HANDOFF AT BEDSIDE. BP 152/64, HRE 86, RESP 16, SATS ON 3NC 100%
[2020-01-13] MEDS: dextrose 5%-lactated ringers 1,000 ML 125 ML IV ×3 (11:11→21:52)
[2020-01-13] MEDS: HYDROmorphone 1 mg/mL INJ 1 mL 1.5 MG IVP ×2 (11:13→17:00)
[2020-01-13] MEDS: HYDROcodone-acetaminophen 5-325 mg Tablet PO ×2 (13:30→22:42)
--- NOTE | 2020-01-13 17:19 | PC.NURSE ---
Patient arrived on OB floor at this time via bed.
--- NOTE | 2020-01-13 18:01 | PC.NURSE ---
Patient up to chair at this time, no complaints of dizziness or lightheadedness at this time
[2020-01-13] MEDS: docusate sodium 100 mg Capsule PO (18:15)
[2020-01-14] MEDS: dextrose 5%-lactated ringers 1,000 ML 125 ML IV ×2 (03:12→12:18)
[2020-01-14] MEDS: acetaminophen 325 mg Tablet 650 MG PO (03:16)
[2020-01-14 05:00] VITALS: BP 125/81; PULSE 106; RESP 17; TEMP 36.9; O2SAT 94
[2020-01-14 05:26] LABS: Hematocrit 31.2 % (37.0-47.0); Hemoglobin 9.7 g/dL (11.5-15.3); Mean Corpuscular HGB Conc 31.1 g/dL (30.0-36.0); Mean Corpuscular Hemoglobin 32.2 pg (28.0-34.0); Mean Corpuscular Volume 103.7 fL (81-99); Mean Platelet Volume 10.5 fL (7.4-10.4); Platelet Count 230 10^3/cmm (130-400); Red Blood Count 3.01 10^6/uL (4.1-5.3); Red Cell Distribution Width 15.4 % (12.1-15.1); White Blood Count 9.6 10^3/uL (4.0-10.0)
[2020-01-14] MEDS: HYDROcodone-acetaminophen 5-325 mg Tablet PO ×2 (08:17→17:42)
[2020-01-14] MEDS: docusate sodium 100 mg Capsule PO ×2 (09:17→17:43)
[2020-01-14 11:25] VITALS: BP 133/71; PULSE 91; RESP 18; TEMP 36.8; O2SAT 99
--- NOTE | 2020-01-14 12:59 | PM.PN ---
Subjective Subjective: Interval history: Ms. Veliz is doing well today. She is mostly concerned about her missing bag. She states that she is burping however is not passed flatus. Continues to have the catheter in place and is anxious to have this removed. She denies nausea, vomiting, fever, chills, shortness of breath and chest pain. She has tolerated clears without any difficulty as well as coffee. Objective: Gen.: No acute distress Heart: S1-S2 heard, regular rate and rhythm Lungs: Clear to auscultation bilaterally Abdomen: Soft, nondistended, no rebound, no guarding Incision: Clean dry and intact with Steri-Strips. Legs: No calf tenderness, [default value] pedal edema. Assessment and plan: 54-year-old status post total abdominal hysterectomy with bilateral salpingo-oophorectomy, postoperative day #1 -Doing well-continue routine postoperative care -Anticipate d removing the Hernandez catheter later today and will plan on advancing diet to regular diet once she passes flatus -Hemoglobin stable and will start on heparin in addition to SCDs for DVT prophylaxis -Anticipate discharge home tomorrow if she continues to do well. She understands that Dr. Charles will be rounding on her tomorrow -Discharge instructions reviewed with patient today as well. Vitals/I&O/Wt Last Vital Signs Temp 98.4 F 01/14/20 05:00 Pulse 106 H 01/14/20 05:00 Resp 17 01/14/20 05:00 BP 125/81 01/14/20 05:00 Pulse Ox 94 01/14/20 05:00 01/13/20 01/14/20 01/14/20 22:59 06:59 14:59 Intake Total 1335.416 / 2585.416 666.667 / 3252.083 950 / 950 Output Total 1100 / 1900 800 / 2700 Balance 235.416 / 685.416 -133.333 / 552.083 950 / 950 Physical Exam Urinary Catheter Management^: Hernandez: Cath Placed During This Visit: yes Urinary Catheter Date of Insertion: 01/13/20 Urinary Catheter Time of Insertion: 07:20 Data : 01/14/20 05:10 Attestations Medical Necessity Statement*: Patient will need to stay in the hospital for 1-2 more nights to recover from surgery Coding Level of Care Code Acute 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
[2020-01-14 16:10] VITALS: BP 113/71; PULSE 82; RESP 16; TEMP 36.7; O2SAT 97
[2020-01-14] MEDS: petrolatum oint Pkt 5 gm 1 APPLIC (17:44)
[2020-01-14] MEDS: heparin 5,000 unit/mL INJ 1 mL 5000 UNIT INJECTION (19:56)
[2020-01-14 22:00] VITALS: BP 103/68; PULSE 105; RESP 16; TEMP 36.8
[2020-01-15 04:20] VITALS: BP 121/76; PULSE 84; RESP 16; TEMP 36.8; O2SAT 96
[2020-01-15] MEDS: heparin 5,000 unit/mL INJ 1 mL 5000 UNIT INJECTION (06:11)
[2020-01-15] MEDS: docusate sodium 100 mg Capsule PO (08:11)
[2020-01-15] MEDS: HYDROcodone-acetaminophen 5-325 mg Tablet PO (08:11)
[2020-01-15] MEDS: HYDROcodone-acetaminophen 5-325 mg Tablet 1 TAB PO (10:21)
[2020-01-15 10:25] VITALS: BP 115/76; PULSE 88; RESP 16; TEMP 36.7; O2SAT 99
[2020-01-15 10:28] VITALS: BP 116/74; PULSE 90; RESP 16; TEMP 36.7; O2SAT 99
[2020-01-15 11:25] VITALS: BP 115/76; PULSE 88; RESP 16; TEMP 36.7; O2SAT 99
--- NOTE | 2020-01-15 12:09 | P.PN_ITS ---
Subjective Subjective: Interval history: Reports doing well. States pain is been well controlled. Denies lightheadedness or dizziness with ambulation. Denies shortness of breath or chest pains. Reports tolerating a regular diet without nausea or vomiting. Denies problems with urination. Reports passing flatus. Requesting to go home. Vitals/I&O/Wt Last Vital Signs Temp 98.1 F 01/15/20 11:25 Pulse 88 01/15/20 11:25 Resp 16 01/15/20 11:25 BP 115/76 01/15/20 11:25 Pulse Ox 99 01/15/20 11:25 01/14/20 01/15/20 01/15/20 22:59 06:59 14:59 Intake Total 600 / 600 Output Total 1650 / 2550 500 / 3050 300 / 300 Balance -1650 / -1600 -500 / -2100 300 / 300 Physical Exam Const: COMMON NORMALS: no acute distress, average body habitus, alert and well nourished GENERAL APPEARANCE: well developed ORIENTATION/CONSCIOUSNESS: Yes oriented to person, Yes oriented to place and Yes oriented to time Resp: COMMON NORMALS: normal respiratory effort and clear to auscultation bilaterally AUSCULTATION: clear to auscultation bilaterally Cardio: COMMON NORMALS: regular rate, regular rhythm, No gallops present (Cardio), No murmurs present (Cardio) and No rub (Cardio) RATE: regular rate RHYTHM: regular rhythm GI: COMMON NORMALS: Soft to palpation, No hepatosplenomegaly present and no masses INSPECTION: Yes incision (Well approximated with Steri-Strips present.) AUSCULTATION: Yes normoactive bowel sounds PALPATION: Yes Soft to palpation, Yes Tenderness to palpation present (GI) (Tender in the lower abdomen.), Yes No hepatosplenomegaly present and No Hernia present : EXTERNAL FEMALE EXAM: No Hernia present Extremity: COMMON NORMALS: no clubbing, cyanosis or edema and no calf tenderness Neuro: SENSORIUM/ORIENTATION: Yes alert, Yes oriented to person, Yes oriented to place and Yes oriented to time Psych: COMMON NORMALS: normal affect MOOD & AFFECT: Yes euthymic mood Urinary Catheter Management^: Hernandez: Cath Placed During This Visit: yes, but has since been removed by the nurse Reason for Continuing Indwelling Catheter: Decision to DC Catheter Urinary Catheter Date of Insertion: 01/13/20 Urinary Catheter Time of Insertion: 07: Date Urinary Catheter Removed: 01/14/20 Time Urinary Catheter Discontinued: 10:58 Data : 01/14/20 05:10 A&P Assessment and plan (1) SEBASTIAN II (cervical intraepithelial neoplasia II): Postoperative day 2, status post LIANG with BSO performed by Dr. Merlos. Patient is doing well at this time. Her pain has been well controlled. She is tolerating a regular diet. No problems with ambulation. She is requesting to go home. Discharge to home. Discharge instructions discussed with patient. Patient to follow-up with Dr. Merlos in 2 and [address] Merlos will be doing the Discharge Summary. Status: Acute Attestations Medical Necessity Statement*: Patient being discharged to home today. Coding Level of Care Code Acute Threading Machine T[facility] Diagnoses SEBASTIAN II (cervical intraepithelial neoplasia II) N87.1
--- NOTE | 2020-01-15 19:50 | PM.DCS ---
Discharge Providers Date of Admission: 01/13/20 08:56 Date of Discharge: January 15, 2020 Attending Provider at Admission: Mary Sherman MD Attending Provider at Discharge: Mary Sherman MD Primary Care Provider: Manuel Hendrickson MD Diagnoses at Discharge Discharge Diagnosis (1) SEBASTIAN II (cervical intraepithelial neoplasia II): Status: Acute Reason for Visit Reason for Visit: SEBASTIAN 2 Hospital Course Discharge Summary: Ms. Veliz is a 54-year-old 2 para 2-0-0-2 who had a longstanding history of SEBASTIAN-1 SEBASTIAN-2 despite LEEP procedure and presented on 01/13/2020 for a hysterectomy as her cervix was too short to proceed with another LEEP procedure. She had no questions and concerns on the day of surgery. She underwent an uncomplicated total abdominal hysterectomy with bilateral salpingo-oophorectomy on 01/13/2020. She did well on postoperative day 0 and was ambulating well, tolerating clear liquid diet. Pain was well-controlled with by mouth and IV pain medication. She denied nausea, vomiting, fever, chills, shortness of breath, leg pain. She had minimal vaginal bleeding. Hernandez catheter was kept overnight and she had adequate urine output. On postoperative day #1 she continued to do well with stable vital signs and stable hemoglobin at 9.8. Hernandez catheter was removed and patient was able to void without any difficulty. She ambulated well started passing flatus and then tolerated a regular diet. She continued to do well on postoperative day 1 with stable vital signs. She was placed on heparin with SCDs for DVT prophylaxis. She had no further problems on postoperative day #2 and tolerated a regular diet. She was discharged home on postoperative day #2 in a stable condition. Warning signs for wound infection, cuff infection, DVT/PE were reviewed with her. Post surgical activity restrictions were also reviewed with her at all her questions were answered to her satisfaction. Follow-up as scheduled in the clinic. Physical Exam Urinary Catheter Management^: Hernandez: Cath Placed During This Visit: yes, but has since been removed by the nurse Reason for Continuing Indwelling Catheter: Decision to DC Catheter Urinary Catheter Date of Insertion: 01/13/20 Urinary Catheter Time of Insertion: 07:20 Date Urinary Catheter Removed: 01/14/20 Time Urinary Catheter Discontinued: 10:58 Discharge Data Data Completed and Pending: Completed Studies During Hospitalization Category Date Time Status Pathology: Surgic al [PTH] Routine Pth 01/13/20 09:24 Completed Vitals: Last Vital Signs Temp 98.1 F 01/15/20 11:25 Pulse 88 01/15/20 11:25 Resp 16 01/15/20 11:25 BP 115/76 01/15/20 11:25 Pulse Ox 99 01/15/20 11:25 Discharge Plan Discharge Patient Disposition: Home Condition: Stable Prescriptions: New hydrocodone-acetaminophen 5-325 mg Tablet 1 - 2 tab PO Q6H PRN (Reason: Moderate To Severe Pain) 7 Days Qty: 30 RF: 0 Continued multivitamin with minerals [Hair,Skin and Nails] Tablet 1 tab PO DAILY RF: 0 magnesium oxide 500 mg tablet 500 mg PO DAILY RF: 0 biotin 10,000 mcg capsule 10,000 mcg PO DAILY RF: 0 turmeric 400 mg capsule 400 mg PO DAILY RF: 0 gabapentin 300 mg capsule 300 mg PO TID RF: 0 Discharge Orders: Discharge Order (Routine); Ordered 01/15/20 Ordered By: Asif Charles Referrals: Mary Sherman MD [Physician] - 01/26/20 7:45 am (Postoperative visit on 01/26/2020, arrival time 7:45 Postoperative visit on 02/23/2020, arrival time 7:45) Discharge Diet: Regular Discharge Activity: Limit activity as instructed Patient Instructions: Abdominal Hysterectomy (DC), OB Abdominal Surgery - [facility], OB Discharge Report, OB Food/Drug Interaction Guide Activity Restrictions/Additional Instructions: May use [id number] ibuprofen 200 mg, 4 tablets 3 times a day as needed for pain May use [id number] MiraLAX (or store brand) as needed for constipation. Follow instructions on bottle. . 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
== END 2020-01-15 11:35 | disposition home or self-care (01) | DRG 743 ==
LOC: MEDSURG 08:59 → OBGYN 16:48
PROVIDERS: Admitting Provider Obstetrics & Gynecology; PCP Family Medicine; Visit Provider Obstetrics & Gynecology
PROC: 0UT90ZZ Resection of Uterus, Open Approach (ICD-10-PCS; CPT 58150; principal; 2020-01-13 07:00)
DX: N87.1 Moderate cervical dysplasia (principal); Z85.118 Personal history of other malignant neoplasm of bronchus and lung; Z87.891 Personal history of nicotine dependence; Z92.21 Personal history of antineoplastic chemotherapy; Z92.3 Personal history of irradiation
CPT/HCPCS: 12345; 51702; 85025; 85027; 86850; 86900; 88307; 96365; 96375; J0131; J0690; J1100; J1170; J1644; J2405; J3010; J7030; T1015-U1

== ENCOUNTER → 2020-01-26 08:25 | Outpatient (BNVA) | payer MEDICARE, SELFPAY | PROVIDERS: PCP Family Medicine; Visit Provider Obstetrics & Gynecology | DX: R30.0 Dysuria (principal) | CPT/HCPCS: 80053; 87077; 87086; 87186 ==

== ENCOUNTER 2020-03-08 14:12 | Outpatient (CLI) | payer MEDICARE, SELFPAY | END 2020-03-08 14:13 | disposition home or self-care (01) | LOC: ONCMED 14:15 | PROVIDERS: PCP Family Medicine; Visit Provider Internal Medicine Medical Oncology | DX: C34.31 Malignant neoplasm of lower lobe, right bronchus or lung (principal); E22.2 Syndrome of inappropriate secretion of antidiuretic hormone; E87.1 Hypo-osmolality and hyponatremia; K21.9 Gastro-esophageal reflux disease without esophagitis; F41.9 Anxiety disorder, unspecified | CPT/HCPCS: 36591 ==

== ENCOUNTER 2020-05-01 07:39 | Outpatient (CLI) | payer MEDICARE, SELFPAY ==
--- NOTE | 2020-05-01 08:01 | CT_ITS ---
WS: [id number] CT CHEST TECHNIQUE: Contrast enhanced CT of the chest with coronal and sagittal reformatted images. CLINICAL INFORMATION: LUNG CANCER COMPARISON: CT March 27, 2020 DLP: 831.[address] scans at [facility] use at least one of these dose optimization techniques: automat ed exposure control; mA and/or kV adjustment per patient size (includes targeted exams where dose is matched to clinical indication); or iterative reconstruction. FINDINGS: Again seen is persistent soft tissue thickening and bronchovascular thickening along the right hilum. Unchanged appearance since the prior examination. No new parenchymal abnormalities. No progressive m ediastinal or hilar lymphadenopathy. No acute pulmonary infiltrates. Normal caliber thoracic aorta. Mild aortic calcification. Proximal main pulmonary arteries are normal . No axillary lymphadenopathy. Mild diffuse fatty infiltration of the liver. Adrenal glands are normal. A few Schmorl's nodes in the mid thoracic spine. Mild thoracic curve. CT/CT chest w con* [id number] IMPRESSION: 1. No significant changes since July 28, 2019. 2. Stable soft tissue and bronchovascular thickening along the right hilum. Th is is unchanged in appearance. 3. No new parenchymal abnormalities. 4. No mediastinal or hilar lymphadenopathy. 5. No other significant interval changes.
[2020-05-01] MEDS: iohexol 300 mg/mL 100 mL Btl IV (08:37)
== END 2020-05-01 07:40 | disposition home or self-care (01) ==
LOC: RADWPI 07:45
PROVIDERS: PCP Family Medicine; Visit Provider Internal Medicine Medical Oncology
DX: C34.31 Malignant neoplasm of lower lobe, right bronchus or lung (principal)
CPT/HCPCS: 71260; Q9967

== ENCOUNTER 2020-05-10 13:29 | Outpatient (CLI) | payer MEDICARE, SELFPAY ==
[2020-05-10 14:09] LABS: Basophils % 0.3 %; Eosinophils # 0.1 10^3/uL (0.0-0.8); Eosinophils % 2.2 %; Hematocrit 33.5 % (37.0-47.0); Lymphocytes # 2.4 10^3/uL (0.8-4.8); Lymphocytes % 40.1 %; Mean Corpuscular HGB Conc 32.8 g/dL (30.0-36.0); Mean Corpuscular Hemoglobin 31.7 pg (28.0-34.0); Mean Corpuscular Volume 96.5 fL (81-99); Mean Platelet Volume 10.8 fL (7.4-10.4); Monocytes # 0.5 10^3/uL (0.2-0.9); Monocytes % 7.8 %; Neutrophils # 2.96 10^3/uL (1.8-7.7); Neutrophils % 49.3 %; Nucleated Red Blood Cells % 0 %; Platelet Count 223 10^3/cmm (130-400); Red Blood Count 3.47 10^6/uL (4.1-5.3); Red Cell Distribution Width 14.7 % (12.1-15.1)
[2020-05-10 14:45] LABS: Alanine Aminotransferase 21 U/L (0-33); Albumin Level 4.2 g/dL (3.5-5.2); Alkaline Phosphatase 83 IU/L (35-105); Anion Gap 15.8 (5-19); Aspartate Amino Transferase 17 U/L (0-32); Blood Urea Nitrogen 11 mg/dL (6-20); Calcium 9.3 mg/dL (8.5-10.5); Carbon Dioxide 27 mmol/L (22-29); Chloride 101 mmol/L (98-107); Globulin 2.8 g/dL (1.3-4.6); Glomerular Filtration Rate 74.2 mL/min (90-130); Glucose 105 mg/dL (65-115); Osmolality Calculated 290 mOsm/kg (285-295); Potassium 3.8 mmol/L (3.5-5.1); Sodium 140 mmol/L (136-145); Total Bilirubin 0.3 mg/dL (0.15-1.2)
--- NOTE | 2020-05-14 15:12 | ONC FU_ITS ---
Dr. Lyle Patient Follow-Up Note Patient: Dali Veliz Unit #: [id number]: 1965 Dicatated By: Triston Lyle M.D.Date of Visit:May 10, 2020 Onc Med Follow-up/Prog Note Chief Complaint: Lung cancer. 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 On 12/31/2015 she was admitted to the hospital after presenting to the emergency room with confusion. She had significant hyponatremia with a serum sodium of 115 mmol/L. Chest x-ray was suspicious for consolidation at the right lung base. And chest CT showed near complete atelectasis and consolidation of the right lower lobe with suspected right hilar adenopathy. The hyponatremia resolved with IV replacement, and she was discharged on oral Levaquin. She was readmitted on 01/10/2016 with dizziness and numbness in the lower extremities associated with recurrence of the hyponatremia. She was then transferred to [facility] in [place]. She underwent bronchoscopy with endobronchial biopsy from the right lower lobe. 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 During the hospitalization she was treated with tolvaptan, and at discharge the sodium was normal at 138 mmol/L. Staging CT chest/abdomen/pelvis showed right hilar mass/adenopathy encasing the right bronchovascular structures with extension along the course of the right lower lobe bronchus. It appeared to measure 5.9 x 3.7 cm. Subcentimeter satellite nodules were noted within the superior segment of the right lower lobe and there are also scattered interstitial opacities within the lateral right lower lobe. These were felt to be nonspecific, possibly representing infectious or inflammatory foci, lymphangitic spread could not be excluded. There is no evidence of any other metastatic disease on those studies. MRI of the brain showed minimal chronic white matter ischemic changes with no evidence of metastatic involvement. She had further staging with PET/CT on 01/20/2016. That study showed FDG avid mass surrounding the bronchovascular bundle the right lower lobe. It measured 3.7 x 4.2 x 6.8 cm. It did appear to come within 2 cm of the debby. There was no evidence of any metastatic involvement. She began a course of chemotherapy with cisplatin/etoposide, cycle 1 day 1 on 01/31/2016. She also was referred to Dr. Aparicio for concurrent radiation, which she started on 02/06/2016. She was hospitalized on 02/13/2016 with UTI and sepsis. She was severely neutropenic with ANC 0. She was treated with cefepime and vancomycin and she was given 3 days of Neupogen. Her neutropenia resolved and she also improved clinically as her sepsis resolved. She was anemic and required 1 unit of PRBC's. She was also found to have recurrence of SIADH/hyponatremia. Her urine culture grew out Escherichia coli sensitive to Bactrim, and she was discharged with 7 days of Bactrim on 02/16/2016. She recovered uneventfully, and she was then able to continue her treatment. She was given a dose reduction with the second cycle, and thereafter she tolerated the chemotherapy well. She completed radiation to the right lung on 03/28/2016 to a total dose of 6600 cGy. She completed her 6th cycles of chemotherapy on 05/15 - 05/17/2016. Her restaging CT scan of the chest, abdomen, and pelvis performed on 06/10/2016 showed no evidence for recurrent pulmonary mass and no evidence of metastatic disease. She was then given prophylactic cranial radiation, which she completed on 07/01/2016 to a total dose of [address] of the chest on 11/29/2016 showed no evidence of disease progression. There were unchanged right perihilar upper, middle, and lower lobe post therapeutic changes. Repeat chest CT on 06/26/2017 showed no evidence of recurrence/progression of the lung cancer. Perihilar posttherapeutic changes appeared stable. She continued observation/expectant management. Her other medical illnesses include GERD, mild degenerative arthritis, and chronic anxiety. She has a history of nephrolithiasis. She has history of smoking 1 pack of cigarettes daily for 30 years. She has quit. INTERIM HISTORY: CT of the chest on 12/18/2017 showed stable post therapeutic changes over the right hilum and proximal right upper and right lower lobe bronchopulmonary structures. There was no adenopathy noted. There was no evidence of metastatic involvement in the liver or adrenal glands and there was no evidence of osteoblastic or osteolytic bone disease. On 06/13/2018 she presented to the emergency room with fever and cough. Chest x-ray showed no acute findings. Influenza serology was negative. She was given antibiotic coverage with cephalexin, and her symptoms did improve. She did develop a rash in the abdominal area from the antibiotic. Her surveillance chest CT on 06/26/2018 showed new micronodular infiltrates in the inferior right upper lobe along the fissure and about the right hilum. There were additional nodular infiltrates in the superior segment of the right lower lobe. Also noted was bronchovascular thickening along the right hilum and infrahilar region. All of this appeared significantly progressed compared to the prior study. The findings were consistent with infectious etiology but with recurrent/progressive disease not excluded. As her clinical status at that point appeared stable, I had just recommend close observation. Her repeat chest CT on 01/04/2019 showed resolution of the previously described micronodular infiltrates along the fissure. There was persistent soft tissue and bronchovascular thickening involving the right hilum. There was no mediastinal or hilar lymphadenopathy noted. Overall, there was no evidence for recurrence/progression of the lung cancer and no evidence of other acute findings. Surveillance chest CT on 07/28/2019 soft tissue and bronchovascular thickening involving the right hilum which appeared unchanged since the prior studies. There were no new parenchymal abnormalities noted and there was no mediastinal or hilar lymphadenopathy noted. She continued on observation/expectant management. She underwent hysterectomy/bilateral salpingo-oophorectomy on 01/13/2020. There was no evidence of malignancy. Her surveillance chest CT 05/01/2020 showed stable soft tissue and bronchovascular thickening along the right hilum. There is no evidence of disease recurrence/progression. She is seen for a follow-up visit. She says she has been feeling good, though she does complain that she is tired. She is able to do light work. ECOG score is 1. Her appetite is good. She has not had fever. She does have some sweating at times. She complains of dry mouth and she sometimes has sore throat. She has no shortness of breath, cough, or chest pain. She has no GI complaints other than constipation off and on. She says she has not been voiding a lot, but she has no problems with her bladder function. She has some arthritis, mainly in the right shoulder and both hips, but she says that has been doing pretty good. She has just occasional headache. She has dizziness if she gets up too fast or sometimes if she looks up. Her neuropathy symptoms have improved with gabapentin. Medications: B-12 1 (500 mcg) Tablet Oral daily, Biotin 1 (95203 mcg) Capsule Oral daily, Docusate Calcium 1 (240 mg) Capsule Oral PRN, Flonase 2 spray(s) (of 50 mcg/act) Suspension Nasal four times a day PRN, Furosemide 1 (40 mg) Tablet Oral daily PRN, Gabapentin 1 Capsule (of 300 mg) Oral t.i.d., Hair Skin & Nails Gummies 2 (1250-7.5-7.5 mcg-mg-unt) Tablet, chewable Oral daily, Multivital-M 1 Tablet Oral daily Allergies: Aspirin, Keflex, Levaquin, Morphine Sulfate, Penicillin V Potassium, and Vancomycin HCl. Review of Systems: Constitutional - She has been feeling tired, she is able to do light work. Appetite is good and weight is stable. No fever, night sweats, or hot flashes. ECOG score is 1, ENMT - She has a little bit of sinus drainage. She complains of dry mouth. She sometimes has sore throat. No difficulty swallowing, Hematologic/Lymphatic - No abnormal bruising or bleeding, Respiratory - No shortness of breath. No cough. No pleuritic pain or hemoptysis, Cardiovascular - No angina pain. No palpitations, Gastrointestinal - No nausea or vomiting. No heartburn or acid reflux. She has constipation off and on. No blood in the stool or black stools, Genitourinary (F) - She complains that she is not voiding a lot. No dysuria or hematuria. No urgency or incontinence, Musculoskeletal - She has some arthritis, mainly in the right shoulder and in both hips, Integumentary - No skin rash, Neurologic - She has headache occasionally. She has dizziness if she gets up too fast and occasionally when she looks up. Her neuropathy symptoms have improved with gabapentin, Psychiatric - No anxiety or depression. No insomnia. Vital Signs: Performed on May 10, 2020 15:18 Height - 64.00 in Weight - 160.6 lbs (HIGH) BSA - 1.78 sq.m BMI - 27.57 Temperature - 98.0 F (LOW) Pulse - 95 /min Respiration - 16 /min BP - 144/82 mm(hg) (HIGH) O2 Sat - 98 % Pain - 0 Physical Examination: Constitutional - She looks pretty good generally, Eyes - Sclerae nonicteric. Conjunctivae clear, ENMT - No lesions noted in the oral cavity, Hematologic/Lymphatic - No cervical, clavicular, or axillary adenopathy, Respiratory - Lungs are clear with good air movement bilaterally, Cardiovascular - Heart rhythm is regular. There is no murmur, gallop, or rub noted, Abdomen - Soft and non-tender. Liver and spleen are not enlarged. There is no abdominal mass or ascites noted and there is no inguinal adenopathy, Extremities - Mild edema, Neurologic - No focal neurologic deficits noted. Lab/Imaging: Test performed on May 10, 2020 13:55 Sodium 140 mmol/L Potassium 3.8 mmol/L Chloride 101 mmol/L CO2 27 mmol/L Anion Gap 15.8 BUN 11 mg/dL Creatinine 0.8 mg/dL Cr Clearance (Est) 90.30 mL/min eGFR 74.2 mL/min Glucose 105 mg/dL Osmolality - Calculated 290 mOsm/kg Calcium 9.3 mg/dL Protein, Total 7.0 g/dL Albumin 4.2 g/dL Globulin 2.8 g/dL Bilirubin, Total 0.3 mg/dL ALT (SGPT) 21 U/L AST (SGOT) 17 U/L Alkaline Phosphatase 83 IU/L WBC 6.0 10 3/uL RBC 3.47 10 6/uL HGB 11.0 g/dL HCT 33.5 % MCV 96.5 fL MCH 31.7 pg MCHC 32.8 g/dL RDW 14.7 % Platelet Count 223 10 3/cmm MPV 10.8 fL Neutrophils 2.96 10 3/uL Lymphocytes 2.4 10 3/uL Monocytes 0.5 10 3/uL Eosinophils 0.1 10 3/uL Basophils 0.0 10 3/uL Neutrophil % 49.3 % Lymphocyte % 40.1 % Monocyte % 7.8 % Eosinophil % 2.2 % Basophils % 0.3 % NRBC % 0 % Impression: 1. 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 Her disease appeared to be at least stage IIIA (T4, N0, M0), but with limited stage disease clinically. 2. She had associated hyponatremia, presumably SIADH. 3. She underwent definitive chemoradiation utilizing cisplatin/etoposide for chemosensitization. Cycle 1 of chemotherapy began 01/31/2016. It was complicated by severe neutropenia with associated urinary tract infection/sepsis. She recovered uneventfully and she was able to continue her treatment. She received a dose reduction with the second cycle of chemotherapy, and thereafter she tolerated it well. 4. She completed radiation to the right lung on 03/28/2016 to a total dose of 6600 cGy. She completed 6 cycles of chemotherapy in May 2016. She appeared to have a complete response by restaging CT scans in June 2016. 5. She was then given prophylactic cranial irradiation, completed on 07/01/2016 to a total dose of 2500 cGy. Her other medical illnesses include: 6. GERD. 7. Mild degenerative arthritis. 8. History of nephrolithiasis. 9. Chronic anxiety. She has been followed on observation/expectant management following completion of her chemotherapy and radiation. During follow-up her surveillance CT scans have shown post-therapeutic changes in the right perihilar region, but no evidence of disease progression. On 06/13/2018 she presented to the emergency room with cough and fever. Chest x-ray that time showed no acute infiltrate. Influenza serology was negative. She was given empiric antibiotic coverage with cephalexin, and her symptoms have improved. Her CT scan showed new infiltrates in the right lung. These appeared to be most consistent with infectious etiology, but with recurrent/progressive disease not excluded. Her surveillance chest CT in December 2018 showed resolution of the previously described micronodular infiltrates along the fissure. There is no evidence of recurrence/progression of the lung cancer. She continued on observation/expectant management. During follow-up she has had some fatigue and she also developed persistent neuropathy symptoms. Overall, though, she has been doing well clinically. Thus far there has been no evidence of recurrence of the lung cancer. Plan: She remains on observation/expectant management for the lung cancer. She will continue gabapentin for her neuropathy symptoms. I will see her again in 6 months. Signed By: Triston Lyle M.D. <<Signature on File>>
== END 2020-05-10 13:30 | disposition home or self-care (01) ==
LOC: ONCMED 13:31
PROVIDERS: PCP Family Medicine; Visit Provider Internal Medicine Medical Oncology
DX: Z08 Encounter for follow-up examination after completed treatment for malignant neoplasm (principal); Z85.118 Personal history of other malignant neoplasm of bronchus and lung; R53.83 Other fatigue; K21.9 Gastro-esophageal reflux disease without esophagitis; M19.90 Unspecified osteoarthritis, unspecified site; F41.9 Anxiety disorder, unspecified; Z87.442 Personal history of urinary calculi; Z92.3 Personal history of irradiation; Z92.21 Personal history of antineoplastic chemotherapy; Z87.891 Personal history of nicotine dependence
CPT/HCPCS: 36591; 80053; 85025; G0463

== ENCOUNTER → 2020-06-10 11:03 | Outpatient (BNVA) | payer MEDICARE, SELFPAY | PROVIDERS: PCP Family Medicine | DX: R35.0 Frequency of micturition (principal) | CPT/HCPCS: 81000 ==

== ENCOUNTER → 2020-06-12 10:00 | Outpatient (BNVA) | payer MEDICARE, SELFPAY | PROVIDERS: PCP Family Medicine; Visit Provider Obstetrics & Gynecology | DX: N87.1 Moderate cervical dysplasia (principal) | CPT/HCPCS: 88175 ==

== ENCOUNTER 2020-08-03 12:35 | Outpatient (CLI) | payer MEDICARE, SELFPAY | END 2020-08-03 12:36 | disposition home or self-care (01) | PROVIDERS: PCP Family Medicine; Visit Provider Internal Medicine Medical Oncology | DX: Z45.2 Encounter for adjustment and management of vascular access device (principal) | CPT/HCPCS: 96523 ==

== ENCOUNTER 2020-08-25 09:53 | Outpatient (CLI) | payer MEDICARE, SELFPAY | END 2020-08-25 09:54 | disposition home or self-care (01) | LOC: ONCMED 09:54 | PROVIDERS: PCP Family Medicine; Visit Provider Internal Medicine Medical Oncology | DX: Z45.2 Encounter for adjustment and management of vascular access device (principal) | CPT/HCPCS: 96523 ==

== ENCOUNTER 2020-09-22 09:28 | Outpatient (CLI) | payer MEDICARE, SELFPAY | END 2020-09-22 09:29 | disposition home or self-care (01) | LOC: ONCMED 09:30 | PROVIDERS: PCP Family Medicine; Visit Provider Internal Medicine Medical Oncology | DX: Z45.2 Encounter for adjustment and management of vascular access device (principal) | CPT/HCPCS: 96523 ==

== ENCOUNTER → 2020-10-11 09:00 | Outpatient (BNVA) | payer MEDICARE, SELFPAY | PROVIDERS: PCP Family Medicine; Visit Provider Obstetrics & Gynecology | DX: N87.1 Moderate cervical dysplasia (principal) | CPT/HCPCS: 88175 ==

== ENCOUNTER 2020-10-16 14:32 | Outpatient (CLI) | payer MEDICARE, SELFPAY | END 2020-10-16 14:33 | disposition home or self-care (01) | LOC: ONCMED 14:36 | PROVIDERS: PCP Family Medicine; Visit Provider Internal Medicine Medical Oncology | DX: Z45.2 Encounter for adjustment and management of vascular access device (principal) | CPT/HCPCS: 96523 ==

== ENCOUNTER 2020-11-13 08:52 | Outpatient (CLI) | payer MEDICARE, SELFPAY ==
[2020-11-13 09:22] LABS: Basophils % 0.5 %; Eosinophils # 0.1 10^3/uL (0.0-0.8); Eosinophils % 2.4 %; Hematocrit 35.8 % (37.0-47.0); Hemoglobin 11.6 g/dL (11.5-15.3); Lymphocytes # 2.2 10^3/uL (0.8-4.8); Lymphocytes % 37.8 %; Mean Corpuscular HGB Conc 32.4 g/dL (30.0-36.0); Mean Corpuscular Hemoglobin 32.9 pg (28.0-34.0); Mean Corpuscular Volume 101.4 fL (81-99); Mean Platelet Volume 10.6 fL (7.4-10.4); Monocytes # 0.5 10^3/uL (0.2-0.9); Monocytes % 8.5 %; Neutrophils # 2.92 10^3/uL (1.8-7.7); Neutrophils % 50.6 %; Nucleated Red Blood Cells % 0 %; Platelet Count 223 10^3/cmm (130-400); Red Blood Count 3.53 10^6/uL (4.1-5.3); Red Cell Distribution Width 15.1 % (12.1-15.1); White Blood Count 5.8 10^3/uL (4.0-10.0)
[2020-11-13 09:41] LABS: Alanine Aminotransferase 20 U/L (0-33); Albumin Level 4.2 g/dL (3.5-5.2); Alkaline Phosphatase 78 IU/L (35-105); Anion Gap 13.2 (5-19); Aspartate Amino Transferase 21 U/L (0-32); Blood Urea Nitrogen 9 mg/dL (6-20); Calcium 8.7 mg/dL (8.5-10.5); Carbon Dioxide 27 mmol/L (22-29); Chloride 102 mmol/L (98-107); Globulin 2.9 g/dL (1.3-4.6); Glomerular Filtration Rate 86.6 mL/min (90-130); Glucose 101 mg/dL (65-115); Osmolality Calculated 285 mOsm/kg (285-295); Potassium 4.2 mmol/L (3.5-5.1); Sodium 138 mmol/L (136-145); Total Bilirubin 0.2 mg/dL (0.15-1.2); Total Protein 7.1 g/dL (6.6-8.7)
[2020-11-13 09:44] LABS: Slide Review Slide Review Perform
[2020-11-13 11:26] LABS: Thyroid Stimulating Hormone 2.48 uIU/mL (0.27-4.20)
--- NOTE | 2020-11-13 20:42 | ONC FU_ITS ---
Dr. Lyle Patient Follow-Up Note Patient: Dali Veliz Unit #: [id number]: 1965 Dicatated By: Triston Lyle M.D.Date of Visit:Nov 13, 2020 Onc Med Follow-up/Prog Note Chief Complaint: Lung cancer. 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 On 12/31/2015 she was admitted to the hospital after presenting to the emergency room with confusion. She had significant hyponatremia with a serum sodium of 115 mmol/L. Chest x-ray was suspicious for consolidation at the right lung base. And chest CT showed near complete atelectasis and consolidation of the right lower lobe with suspected right hilar adenopathy. The hyponatremia resolved with IV replacement, and she was discharged on oral Levaquin. She was readmitted on 01/10/2016 with dizziness and numbness in the lower extremities associated with recurrence of the hyponatremia. She was then transferred to [facility] in [place]. She underwent bronchoscopy with endobronchial biopsy from the right lower lobe. 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 During the hospitalization she was treated with tolvaptan, and at discharge the sodium was normal at 138 mmol/L. Staging CT chest/abdomen/pelvis showed right hilar mass/adenopathy encasing the right bronchovascular structures with extension along the course of the right lower lobe bronchus. It appeared to measure 5.9 x 3.7 cm. Subcentimeter satellite nodules were noted within the superior segment of the right lower lobe and there are also scattered interstitial opacities within the lateral right lower lobe. These were felt to be nonspecific, possibly representing infectious or inflammatory foci, lymphangitic spread could not be excluded. There is no evidence of any other metastatic disease on those studies. MRI of the brain showed minimal chronic white matter ischemic changes with no evidence of metastatic involvement. She had further staging with PET/CT on 01/20/2016. That study showed FDG avid mass surrounding the bronchovascular bundle the right lower lobe. It measured 3.7 x 4.2 x 6.8 cm. It did appear to come within 2 cm of the debby. There was no evidence of any metastatic involvement. She began a course of chemotherapy with cisplatin/etoposide, cycle 1 day 1 on 01/31/2016. She also was referred to Dr. Aparicio for concurrent radiation, which she started on 02/06/2016. She was hospitalized on 02/13/2016 with UTI and sepsis. She was severely neutropenic with ANC 0. She was treated with cefepime and vancomycin and she was given 3 days of Neupogen. Her neutropenia resolved and she also improved clinically as her sepsis resolved. She was anemic and required 1 unit of PRBC's. She was also found to have recurrence of SIADH/hyponatremia. Her urine culture grew out Escherichia coli sensitive to Bactrim, and she was discharged with 7 days of Bactrim on 02/16/2016. She recovered uneventfully, and she was then able to continue her treatment. She was given a dose reduction with the second cycle, and thereafter she tolerated the chemotherapy well. She completed radiation to the right lung on 03/28/2016 to a total dose of 6600 cGy. She completed her 6th cycles of chemotherapy on 05/15 - 05/17/2016. Her restaging CT scan of the chest, abdomen, and pelvis performed on 06/10/2016 showed no evidence for recurrent pulmonary mass and no evidence of metastatic disease. She was then given prophylactic cranial radiation, which she completed on 07/01/2016 to a total dose of [address] of the chest on 11/29/2016 showed no evidence of disease progression. There were unchanged right perihilar upper, middle, and lower lobe post therapeutic changes. Repeat chest CT on 06/26/2017 showed no evidence of recurrence/progression of the lung cancer. Perihilar posttherapeutic changes appeared stable. She continued observation/expectant management. Her other medical illnesses include GERD, mild degenerative arthritis, and chronic anxiety. She has a history of nephrolithiasis. She has history of smoking 1 pack of cigarettes daily for 30 years. She has quit. INTERIM HISTORY: CT of the chest on 12/18/2017 showed stable post therapeutic changes over the right hilum and proximal right upper and right lower lobe bronchopulmonary structures. There was no adenopathy noted. There was no evidence of metastatic involvement in the liver or adrenal glands and there was no evidence of osteoblastic or osteolytic bone disease. On 06/13/2018 she presented to the emergency room with fever and cough. Chest x-ray showed no acute findings. Influenza serology was negative. She was given antibiotic coverage with cephalexin, and her symptoms did improve. She did develop a rash in the abdominal area from the antibiotic. Her surveillance chest CT on 06/26/2018 showed new micronodular infiltrates in the inferior right upper lobe along the fissure and about the right hilum. There were additional nodular infiltrates in the superior segment of the right lower lobe. Also noted was bronchovascular thickening along the right hilum and infrahilar region. All of this appeared significantly progressed compared to the prior study. The findings were consistent with infectious etiology but with recurrent/progressive disease not excluded. As her clinical status at that point appeared stable, I had just recommend close observation. Her repeat chest CT on 01/04/2019 showed resolution of the previously described micronodular infiltrates along the fissure. There was persistent soft tissue and bronchovascular thickening involving the right hilum. There was no mediastinal or hilar lymphadenopathy noted. Overall, there was no evidence for recurrence/progression of the lung cancer and no evidence of other acute findings. Surveillance chest CT on 07/28/2019 soft tissue and bronchovascular thickening involving the right hilum which appeared unchanged since the prior studies. There were no new parenchymal abnormalities noted and there was no mediastinal or hilar lymphadenopathy noted. She underwent hysterectomy/bilateral salpingo-oophorectomy on 01/13/2020. There was no evidence of malignancy. Her surveillance chest CT 05/01/2020 showed stable soft tissue and bronchovascular thickening along the right hilum. There is no evidence of disease recurrence/progression. She continued on observation/expectant management. She is seen for a follow-up visit. She has been feeling good generally. She had been tired for a while, but her energy has since then improved. She has normal activity. Her ECOG score is 0. Her appetite is good. She has not had fever. She sometimes has sweating. She has allergy related sinus symptoms. She has no shortness of breath, cough, or chest pain. Her acid reflux is adequately managed with [id number] medication. She sometimes has constipation. She has no complaints. She has joint pain at multiple sites and she has muscle cramping in her fingers and toes. She sometimes has headache, but not as bad now. She sometimes has numbness in her right hand. She has no other focal neurologic symptoms. Medications: B-12 1 (500 mcg) Tablet Oral daily, Biotin 1 (78554 mcg) Capsule Oral daily, Docusate Calcium 1 (240 mg) Capsule Oral PRN, Flonase 2 spray(s) (of 50 mcg/act) Suspension Nasal four times a day PRN, Furosemide 1 (40 mg) Tablet Oral daily PRN, Gabapentin 1 Capsule (of 300 mg) Oral t.i.d., Hair Skin & Nails Gummies 2 (1250-7.5-7.5 mcg-mg-unt) Tablet, chewable Oral daily, Multivital-M 1 Tablet Oral daily Allergies: Aspirin, Keflex, Levaquin, Morphine Sulfate, Penicillin V Potassium, and Vancomycin HCl. Vital Signs: Performed on Nov 13, 2020 10:40 Height - 64.00 in Weight - 158.6 lbs (LOW) BSA - 1.77 sq.m BMI - 27.22 Temperature - 97.3 F (LOW) Pulse - 110 /min (HIGH) Respiration - 16 /min BP - 111/79 mm(hg) O2 Sat - 96 % Pain - 0 Physical Examination: Constitutional - She looks pretty good generally, Eyes - Sclerae nonicteric. Conjunctivae clear, ENMT - No lesions noted in the oral cavity, Hematologic/Lymphatic - No cervical, clavicular, or axillary adenopathy, Respiratory - Lungs are clear with good air movement bilaterally, Cardiovascular - Heart rhythm is regular with a mild tachycardia. There is no murmur, gallop, or rub noted, Abdomen - Mildly distended. Liver and spleen are not enlarged. There is no abdominal mass or ascites noted and there is no inguinal adenopathy, Extremities - There are superficial varicosities bilaterally and there are mild venous stasis changes. There is some associated erythema of the lower legs, and there is slight edema, Integumentary - There are 2 small areas of erythema on the left cheek, Neurologic - No focal neurologic deficits noted. Lab/Imaging: Test performed on Nov 13, 2020 09:08 TSH 2.48 uIU/mL Test performed on Nov 13, 2020 09:06 Sodium 138 mmol/L Potassium 4.2 mmol/L Chloride 102 mmol/L CO2 27 mmol/L Anion Gap 13.2 BUN 9 mg/dL Creatinine 0.7 mg/dL Cr Clearance (Est) 101.92 mL/min eGFR 86.6 mL/min Glucose 101 mg/dL Osmolality - Calculated 285 mOsm/kg Calcium 8.7 mg/dL Protein, Total 7.1 g/dL Albumin 4.2 g/dL Globulin 2.9 g/dL Bilirubin, Total 0.2 mg/dL ALT (SGPT) 20 U/L AST (SGOT) 21 U/L Alkaline Phosphatase 78 IU/L WBC 5.8 10 3/uL RBC 3.53 10 6/uL HGB 11.6 g/dL HCT 35.8 % MCV 101.4 fL MCH 32.9 pg MCHC 32.4 g/dL RDW 15.1 % Platelet Count 223 10 3/cmm MPV 10.6 fL Neutrophils 2.92 10 3/uL Lymphocytes 2.2 10 3/uL Monocytes 0.5 10 3/uL Eosinophils 0.1 10 3/uL Basophils 0.0 10 3/uL Neutrophil % 50.6 % Lymphocyte % 37.8 % Monocyte % 8.5 % Eosinophil % 2.4 % Basophils % 0.5 % NRBC % 0 % CBC Slide Review Slide Review Perform REVIEW AGREES WITH AUTOMATED DIFF Problem List: 1. 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 Her disease appeared to be at least stage IIIA (T4, N0, M0), but with limited stage disease clinically. She had associated hyponatremia at initial diagnosis December 2015. 2. GERD. 3. Degenerative arthritis. 4. History of nephrolithiasis. 5. Chronic anxiety. Problems Addressed with this Encounter and Plan: 1. 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 Her disease appeared to be at least stage IIIA (T4, N0, M0), but with limited stage disease clinically. She had associated hyponatremia, presumably SIADH. She underwent definitive chemoradiation utilizing cisplatin/etoposide for chemosensitization. Cycle 1 of chemotherapy began 01/31/2016. It was complicated by severe neutropenia with associated urinary tract infection/sepsis. She recovered uneventfully and she was able to continue her treatment. She received a dose reduction with the 2nd cycle of chemotherapy, and thereafter she tolerated it well. She completed radiation to the right lung on 03/28/2016 to a total dose of 6600 cGy. She completed 6 cycles of chemotherapy in May 2016. She appeared to have a complete response by restaging CT scans in June 2016. She was then given prophylactic cranial irradiation, completed on 07/01/2016 to a total dose of 2500 cGy. She was followed on observation/expectant management. During follow-up she has had some fatigue and she also has had persistent neuropathy symptoms. Since her last visit she has been feeling somewhat better generally. Overall, she has been doing well clinically, thus far with no evidence of recurrence of the lung cancer. She remains on observation/expectant management. I will see her again in 6 months. Signed By: Triston Lyle M.D. <<Signature on File>>
== END 2020-11-13 08:53 | disposition home or self-care (01) ==
LOC: ONCMED 08:54
PROVIDERS: PCP Family Medicine; Visit Provider Internal Medicine Medical Oncology
DX: Z08 Encounter for follow-up examination after completed treatment for malignant neoplasm (principal); Z85.118 Personal history of other malignant neoplasm of bronchus and lung; K21.9 Gastro-esophageal reflux disease without esophagitis; M19.90 Unspecified osteoarthritis, unspecified site; F41.9 Anxiety disorder, unspecified; Z92.21 Personal history of antineoplastic chemotherapy; Z92.3 Personal history of irradiation
CPT/HCPCS: 36591; 80053; 84443; 85025; G0463

== ENCOUNTER 2020-11-13 08:57 | Outpatient (CLI) | payer MEDICARE, SELFPAY ==
--- NOTE | 2020-11-13 14:30 | MM_ITS ---
WS: [id number] BILATERAL SCREENING DIGITAL MAMMOGRAM WITH CAD HISTORY: Z12.39 - Encounter for other screening for malignant neoplasm... COMPARISON: 08/03/2018 and 07/23/2017 Bilateral CC and MLO views submitted. Computer aided detection analyzed. Breast composition: There are scattered areas of fibroglandular density. No suspicious masses, microc alcifications or architectural distortion. Benign calcifications in each breast. There is a Port-A-Ca th noted posterior in the RIGHT chest wall. MM/[id number] IMPRESSION: BI-RADS: 2-Benign FOLLOW UP: 1 Year Follow-up
== END 2020-11-13 08:58 | disposition home or self-care (01) ==
LOC: RADSHAW 08:58
PROVIDERS: PCP Family Medicine; Visit Provider Obstetrics & Gynecology
DX: Z12.31 Encounter for screening mammogram for malignant neoplasm of breast (principal)
CPT/HCPCS: 77067

== ENCOUNTER 2020-12-22 09:57 | Outpatient (CLI) | payer MEDICARE, SELFPAY | END 2020-12-22 09:58 | disposition home or self-care (01) | LOC: ONCMED 10:01 | PROVIDERS: PCP Family Medicine; Visit Provider Internal Medicine Medical Oncology | DX: Z45.2 Encounter for adjustment and management of vascular access device (principal) | CPT/HCPCS: 96523 ==

== ENCOUNTER 2021-01-26 09:44 | Outpatient (CLI) | payer MEDICARE, SELFPAY | END 2021-01-26 09:45 | disposition home or self-care (01) | LOC: ONCMED 09:47 | PROVIDERS: PCP Family Medicine; Visit Provider Internal Medicine Medical Oncology | DX: Z45.2 Encounter for adjustment and management of vascular access device (principal) | CPT/HCPCS: 96523 ==

== ENCOUNTER 2021-03-15 12:24 | Outpatient (CLI) | payer MEDICARE, SELFPAY ==
--- NOTE | 2021-03-15 12:30 | XR_ITS ---
WS: [id number] XR hip RT 2-3V wo/w pel* [id number] REASON FOR EXAM: HIP PAIN FINDINGS: The right hip joint space is mildly narrowed. Mild/moderate osteophyte formation from the acetabulum. Mild/moderate subchondral sclerotic and cysti c changes in the acetabulum. No significant bony abnormality in the femoral head and neck. Proximal right femoral shaft is unremar kable. Superior and inferior pubic rami are intact. No soft tissue abnormality. XR/XR hip RT 2-3V wo/w pel* [id number] IMPRESSION: Mild/moderate osteoarthritis right hip as above.
== END 2021-03-15 12:25 | disposition home or self-care (01) ==
LOC: RAD 12:26
PROVIDERS: PCP Family Medicine; Visit Provider Family Medicine
DX: M16.11 Unilateral primary osteoarthritis, right hip (principal)
CPT/HCPCS: 73502

== ENCOUNTER 2021-03-23 10:05 | Outpatient (CLI) | payer MEDICARE, SELFPAY | END 2021-03-23 10:06 | disposition home or self-care (01) | PROVIDERS: PCP Family Medicine; Visit Provider Internal Medicine Medical Oncology | DX: Z45.2 Encounter for adjustment and management of vascular access device (principal) | CPT/HCPCS: 96523 ==

== ENCOUNTER 2021-05-02 13:51 | Outpatient (CLI) | payer MEDICARE, SELFPAY ==
--- NOTE | 2021-05-02 14:00 | XRR_ITS ---
PROCEDURE INFORMATION: Exam: XR Chest Exam date and time: 05/02/2021 2:00 PM Age: 55 years old Clinical indication: Cough TECHNIQUE: Imaging protocol: XR of the chest. Views: 2 views. COMPARISON: CT chest w con* [id number] 05/01/2020 8:30 AM FINDINGS: Tubes, catheters and devices: Right chest port terminates in the proximal right atrium. Lungs: Right perihilar fullness again noted, similar in appearance to prior exam. Pleural spaces: No pleural effusion. No pneumothorax. Heart/Mediastinum: Prominent pericardial fat pad again noted. No cardiomegaly. Bones/joints: Unremarkable. XR/XR chest 2V* [id number] IMPRESSION: Right perihilar fullness, similar in appearance to prior studies. Radiation Dose CTDIVOL = (mGy): DLP = (mGy-cm)
== END 2021-05-02 13:52 | disposition home or self-care (01) ==
PROVIDERS: PCP Family Medicine; Visit Provider Family Medicine
DX: R05.9 Cough, unspecified (principal)
CPT/HCPCS: 71046

== ENCOUNTER 2021-05-22 11:52 | Outpatient (CLI) | payer MEDICARE, SELFPAY ==
--- NOTE | 2021-05-22 11:57 | CT_ITS ---
WS: [id number] CT CHEST, ABDOMEN, AND PELVIS TECHNIQUE: Contrast-enhanced CT of the chest, abdomen, and pelvis with coronal and sagittal reformatt ed images. CLINICAL INFORMATION: LUNG CANCER COMPARISON: Multiple prior CTs including April 2020, July 2019, December 2018 DLP: 1147.[address] scans at [facility] use at least one of these dose optimization techniques: automated e xposure control; mA and/or kV adjustment per patient size (includes targeted exams where dose is matc hed to clinical indication); or iterative reconstruction. CT CHEST: Normal caliber thoracic aorta. Diffuse soft tissue thickening about the right hilum with narrowing of the right mainstem bronchus. This is unchanged in appearance compared to the prior study. No mediast inal lymphadenopathy. Normal caliber thoracic aorta. No axillary lymphadenopathy. Patchy nodular infi ltrates in the right lower lobe are new from previous. Left lung is well aerated. No pleural fluid. N ormal thoracic spine. CT ABDOMEN AND PELVIS: Diffuse fatty infiltration of the liver. Normal gallbladder. Normal spleen. Normal GE junction. Fatty atrophy of the pancreas. Normal gallbladder. Adrenal glands are normal. Normal renal parenchymal enh ancement. Prominent right extrarenal pelvis. No hydronephrosis. Normal caliber abdominal aorta. Aorti c calcification. No abdominal or pelvic lymphadenopathy. No inguinal lymphadenopathy. Urine distended bladder. Sigmoid diverticulosis. No evidence of acute diverticulitis. Tiny fat-containing umbilical hernia. Normal lumbar spine. CT/CT chest abd pel w con* IMPRESSION: 1. Stable soft tissue bronchovascular thickening along the right hilum. This i s unchanged in appearance from the prior studies. 2. No mediastinal lymphadenopathy. 3. Patchy slightly nodular infiltrates in right lower lobe. Recommend correlat ion for pneumonitis. This is new from previous. Recommend 3 month follow-up aft er treatment to ensure resolution. 4. No evidence of metastatic disease in the abdomen or pelvis.
[2021-05-22 13:27] LABS: Blood Urea Nitrogen 9 mg/dL (6-20); Glomerular Filtration Rate 127.2 mL/min (90-130)
[2021-05-22 13:31] LABS: Basophils % 0.5 %; Eosinophils # 0.1 10^3/uL (0.0-0.8); Eosinophils % 1.3 %; Hematocrit 33.6 % (37.0-47.0); Hemoglobin 10.9 g/dL (11.5-15.3); Lymphocytes # 2.4 10^3/uL (0.8-4.8); Lymphocytes % 40.1 %; Mean Corpuscular HGB Conc 32.4 g/dL (30.0-36.0); Mean Corpuscular Hemoglobin 32.8 pg (28.0-34.0); Mean Corpuscular Volume 101.2 fl (81-99); Mean Platelet Volume 10.9 fL (7.4-10.4); Monocytes # 0.5 10^3/uL (0.2-0.9); Monocytes % 8.1 %; Neutrophils # 2.97 10^3/uL (1.8-7.7); Neutrophils % 49.8 %; Nucleated Red Blood Cells % 0 %; Platelet Count 255 10^3/cmm (130-400); Red Blood Count 3.32 10^6/uL (4.1-5.3); Red Cell Distribution Width 13.9 % (12.1-15.1)
[2021-05-22] MEDS: iohexol 300 mg/mL 100 mL Btl IV (13:45)
[2021-05-22 13:50] LABS: Alanine Aminotransferase 16 U/L (0-33); Alkaline Phosphatase 84 IU/L (35-105); Anion Gap 18.7 (5-19); Aspartate Amino Transferase 13 U/L (0-32); Blood Urea Nitrogen 9 mg/dL (6-20); Calcium 8.3 mg/dL (8.5-10.5); Carbon Dioxide 21 mmol/L (22-29); Chloride 97 mmol/L (98-107); Globulin 2.6 g/dL (1.3-4.6); Glucose 97 mg/dL (65-115); Osmolality Calculated 275 mOsm/kg (285-295); Potassium 3.7 mmol/L (3.5-5.1); Sodium 133 mmol/L (136-145); Total Bilirubin 0.2 mg/dL (0.15-1.2); Total Protein 6.6 g/dL (6.6-8.7)
[2021-05-22 14:14] LABS: Slide Review Slide Review Perform
[2021-05-22] MEDS: iohexol 300 mg/mL 50 mL Btl IV (14:23)
== END 2021-05-22 11:53 | disposition home or self-care (01) ==
LOC: CT 11:54 → ONCMED 13:06
PROVIDERS: PCP Family Medicine; Visit Provider Internal Medicine Medical Oncology
DX: C34.31 Malignant neoplasm of lower lobe, right bronchus or lung (principal); R91.8 Other nonspecific abnormal finding of lung field; E22.2 Syndrome of inappropriate secretion of antidiuretic hormone; E87.1 Hypo-osmolality and hyponatremia; K21.9 Gastro-esophageal reflux disease without esophagitis; F41.9 Anxiety disorder, unspecified
CPT/HCPCS: 36591; 71260; 74177; 80053; 82565; 84520; 85025; Q9967

== ENCOUNTER 2021-05-23 07:10 | Outpatient (CLI) | payer MEDICARE, SELFPAY ==
[2021-05-23] MEDS: pneumococcal (23 valent) SDV 0.5 mL IM (15:30)
[2021-05-23 15:39] LABS: Iron 61 ug/dL (37-145); Percent Saturation 22.3 % (20-50); Total Iron Binding Capacity 273 mcg/dl; Unsaturated Iron Binding 212 ug/dL (112-347)
[2021-05-23 15:56] LABS: Vitamin B12 377 pg/mL (232-1245)
--- NOTE | 2021-05-27 11:09 | ONC FU_ITS ---
Dr. Lyle Patient Follow-Up Note Patient: Dali Veliz Unit #: [id number]: 1965 Dicatated By: Triston Lyle M.D.Date of Visit:May 23, 2021 Onc Med Follow-up/Prog Note Chief Complaint: Lung cancer. 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 On 12/31/2015 she was admitted to the hospital after presenting to the emergency room with confusion. She had significant hyponatremia with a serum sodium of 115 mmol/L. Chest x-ray was suspicious for consolidation at the right lung base. And chest CT showed near complete atelectasis and consolidation of the right lower lobe with suspected right hilar adenopathy. The hyponatremia resolved with IV replacement, and she was discharged on oral Levaquin. She was readmitted on 01/10/2016 with dizziness and numbness in the lower extremities associated with recurrence of the hyponatremia. She was then transferred to [facility] in [place]. She underwent bronchoscopy with endobronchial biopsy from the right lower lobe. 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 During the hospitalization she was treated with tolvaptan, and at discharge the sodium was normal at 138 mmol/L. Staging CT chest/abdomen/pelvis showed right hilar mass/adenopathy encasing the right bronchovascular structures with extension along the course of the right lower lobe bronchus. It appeared to measure 5.9 x 3.7 cm. Subcentimeter satellite nodules were noted within the superior segment of the right lower lobe and there are also scattered interstitial opacities within the lateral right lower lobe. These were felt to be nonspecific, possibly representing infectious or inflammatory foci, lymphangitic spread could not be excluded. There is no evidence of any other metastatic disease on those studies. MRI of the brain showed minimal chronic white matter ischemic changes with no evidence of metastatic involvement. She had further staging with PET/CT on 01/20/2016. That study showed FDG avid mass surrounding the bronchovascular bundle the right lower lobe. It measured 3.7 x 4.2 x 6.8 cm. It did appear to come within 2 cm of the debby. There was no evidence of any metastatic involvement. She began a course of chemotherapy with cisplatin/etoposide, cycle 1 day 1 on 01/31/2016. She also was referred to Dr. Aparicio for concurrent radiation, which she started on 02/06/2016. She was hospitalized on 02/13/2016 with UTI and sepsis. She was severely neutropenic with ANC 0. She was treated with cefepime and vancomycin and she was given 3 days of Neupogen. Her neutropenia resolved and she also improved clinically as her sepsis resolved. She was anemic and required 1 unit of PRBC's. She was also found to have recurrence of SIADH/hyponatremia. Her urine culture grew out Escherichia coli sensitive to Bactrim, and she was discharged with 7 days of Bactrim on 02/16/2016. She recovered uneventfully, and she was then able to continue her treatment. She was given a dose reduction with the second cycle, and thereafter she tolerated the chemotherapy well. She completed radiation to the right lung on 03/28/2016 to a total dose of 6600 cGy. She completed her 6th cycles of chemotherapy on 05/15 - 05/17/2016. Her restaging CT scan of the chest, abdomen, and pelvis performed on 06/10/2016 showed no evidence for recurrent pulmonary mass and no evidence of metastatic disease. She was then given prophylactic cranial radiation, which she completed on 07/01/2016 to a total dose of [address] of the chest on 11/29/2016 showed no evidence of disease progression. There were unchanged right perihilar upper, middle, and lower lobe post therapeutic changes. Repeat chest CT on 06/26/2017 showed no evidence of recurrence/progression of the lung cancer. Perihilar posttherapeutic changes appeared stable. She continued observation/expectant management. Her surveillance chest CT on 06/26/2018 showed new micronodular infiltrates in the inferior right upper lobe along the fissure and about the right hilum. There were additional nodular infiltrates in the superior segment of the right lower lobe. Also noted was bronchovascular thickening along the right hilum and infrahilar region. All of this appeared significantly progressed compared to the prior study. The findings were consistent with infectious etiology but with recurrent/progressive disease not excluded. As her clinical status at that point appeared stable, I had just recommend close observation. Her repeat chest CT on 01/04/2019 showed resolution of the previously described micronodular infiltrates along the fissure. There was persistent soft tissue and bronchovascular thickening involving the right hilum. There was no mediastinal or hilar lymphadenopathy noted. Overall, there was no evidence for recurrence/progression of the lung cancer and no evidence of other acute findings. Surveillance chest CT on 07/28/2019 soft tissue and bronchovascular thickening involving the right hilum which appeared unchanged since the prior studies. There were no new parenchymal abnormalities noted and there was no mediastinal or hilar lymphadenopathy noted. She underwent hysterectomy/bilateral salpingo-oophorectomy on 01/13/2020. There was no evidence of malignancy. Her surveillance chest CT 05/01/2020 showed stable soft tissue and bronchovascular thickening along the right hilum. There was no evidence of disease recurrence/progression. She continued expectant management for the lung cancer. Her other medical illnesses include GERD, mild degenerative arthritis, and chronic anxiety. She has a history of nephrolithiasis. She has history of smoking 1 pack of cigarettes daily for 30 years. She quit smoking in 2015. INTERIM HISTORY: Her surveillance CT scans on 05/22/2021 showed soft tissue bronchovascular thickening along the right hilum, unchanged in appearance compared to prior studies. New patchy slightly nodular infiltrates in the right lower lobe appeared consistent with pneumonitis. There was no mediastinal lymphadenopathy and there was no evidence of metastatic disease in the abdomen or pelvis. She is seen for a follow-up visit. She says she was sick with bronchitis about 3 weeks ago. At the time she was coughing her head off, and she was treated with antibiotic and steroid. She is better now. She still sometimes feels fatigued. Her ECOG score is 1. Her appetite has been down a little. She had fever with the bronchitis, but none since then. She still sometimes has chills and she has had some sweating at night. She had fever blisters in her mouth, but those have healed. She now has just occasional cough. Her breathing also is better. She was having some chest pain with the coughing. She had some diarrhea last weekend, but that has resolved. She has no other GI or complaints. She has some arthritis pain, mainly in her knees and left hip. She occasionally has headache. She sometimes has numbness in her hands at night. Medications: B-12 1 (500 mcg) Tablet Oral daily, Biotin 1 (00871 mcg) Capsule Oral daily, Docusate Calcium 1 (240 mg) Capsule Oral PRN, Flonase 2 spray(s) (of 50 mcg/act) Suspension Nasal four times a day PRN, Furosemide 1 (40 mg) Tablet Oral daily PRN, Gabapentin 1 Capsule (of 300 mg) Oral t.i.d., Hair Skin & Nails Gummies 2 (1250-7.5-7.5 mcg-mg-unt) Tablet, chewable Oral daily, Multivital-M 1 Tablet Oral daily Allergies: Aspirin, Keflex, Levaquin, Morphine Sulfate, Penicillin V Potassium, and Vancomycin HCl. Vital Signs: Performed on May 23, 2021 16:35 Height - 64.00 in Weight - 156.2 lbs (LOW) BSA - 1.76 sq.m BMI - 26.81 Temperature - 97.7 F (LOW) Pulse - 106 /min (HIGH) Respiration - 16 /min BP - 155/85 mm(hg) (HIGH) O2 Sat - 96 % Pain - 0 Fatigue - 3 Physical Examination: Constitutional - She looks pretty good generally, Eyes - Sclerae nonicteric. Conjunctivae clear, ENMT - No lesions noted in the oral cavity, Hematologic/Lymphatic - No cervical, clavicular, or axillary adenopathy, Respiratory - Lungs sound clear with good air movement bilaterally, Cardiovascular - Heart rhythm is regular. There is no murmur, gallop, or rub noted, Abdomen - Mildly distended. Liver and spleen are not enlarged. There is no abdominal mass or ascites noted and there is no inguinal adenopathy, Extremities - Slight edema, Neurologic - No focal neurologic deficits noted. Lab/Imaging: CBC shows hemoglobin 10.9 g, white blood cell count 6000, and platelet count 255,000. Comprehensive metabolic profile shows normal renal function with BUN 9 and creatinine 0.6 mg/dL. The sodium is slightly low at 133 mmol/L. Bilirubin and liver enzymes are normal. Problem List: 1. Small cell carcinoma involving the lower lobe of the right lung. Her disease appeared to be at least stage IIIA (T4, N0, M0), but with limited stage disease clinically. She had associated hyponatremia at initial diagnosis December 2015. 2. GERD. 3. Degenerative arthritis. 4. History of nephrolithiasis. 5. Chronic anxiety. 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 Her disease appeared to be at least stage IIIA (T4, N0, M0), but with limited stage disease clinically. She had associated hyponatremia, presumably SIADH. She underwent definitive chemoradiation utilizing cisplatin/etoposide for chemosensitization. Cycle 1 of chemotherapy began 01/31/2016. It was complicated by severe neutropenia with associated urinary tract infection/sepsis. She recovered uneventfully and she was able to continue her treatment. She received a dose reduction with the 2nd cycle of chemotherapy, and thereafter she tolerated it well. She completed radiation to the right lung on 03/28/2016 to a total dose of 6600 cGy. She completed 6 cycles of chemotherapy in May 2016. She appeared to have a complete response by restaging CT scans in June 2016. She was then given prophylactic cranial irradiation, completed on 07/01/2016 to a total dose of 2500 cGy. She was then followed on expectant management. During follow-up she has had some fatigue and she also has had persistent neuropathy symptoms. She recently required antibiotic and steroid therapy for an episode of bronchitis, but that does appear to be resolving. Overall, she has been doing well clinically, thus far with no documented recurrence of the lung cancer. She continues on observation/expectant management. I will see her again in 3 months. Signed By: Triston Lyle M.D. <<Signature on File>>
== END 2021-05-23 07:11 | disposition home or self-care (01) ==
LOC: ONCMED 07:11
PROVIDERS: PCP Family Medicine; Visit Provider Internal Medicine Medical Oncology
DX: Z08 Encounter for follow-up examination after completed treatment for malignant neoplasm (principal); Z85.118 Personal history of other malignant neoplasm of bronchus and lung; E87.1 Hypo-osmolality and hyponatremia; K21.9 Gastro-esophageal reflux disease without esophagitis; M19.90 Unspecified osteoarthritis, unspecified site; F41.9 Anxiety disorder, unspecified; Z87.442 Personal history of urinary calculi; Z92.3 Personal history of irradiation; Z92.21 Personal history of antineoplastic chemotherapy
CPT/HCPCS: 82607; 83540; 83550; 90471; 90686; 90732; 99214

== ENCOUNTER 2021-06-26 09:46 | Outpatient (CLI) | payer MEDICARE, SELFPAY ==
[2021-06-26 09:56] VITALS: BP 167/94; PULSE 91; RESP 17; TEMP 36.6; O2SAT 98; BMI 28.0
[2021-06-26 11:03] VITALS: BP 145/87; PULSE 73; RESP 18; TEMP 36.7; O2SAT 99
[2021-06-26 12:03] VITALS: BP 139/83; PULSE 74; RESP 16; TEMP 36.2; O2SAT 93
== END 2021-06-26 12:03 | disposition home or self-care (01) ==
LOC: OPS 09:55
PROVIDERS: PCP Family Medicine; Visit Provider Family Medicine
DX: U07.1 COVID-19 (principal)

== ENCOUNTER 2021-07-24 13:48 | Outpatient (CLI) | payer MEDICARE, SELFPAY | END 2021-07-24 13:49 | disposition home or self-care (01) | PROVIDERS: PCP Family Medicine; Visit Provider Internal Medicine Medical Oncology | DX: Z45.2 Encounter for adjustment and management of vascular access device (principal) | CPT/HCPCS: 96523 ==

== ENCOUNTER 2021-08-29 11:53 | Outpatient (CLI) | payer MEDICARE, SELFPAY ==
--- NOTE | 2021-08-29 12:10 | CT_ITS ---
WS: [id number] CT CHEST WITH INTRAVENOUS CONTRAST HISTORY: LUNG CANCER TECHNIQUE: Contiguous 5 mm axial imaging performed on the thorax. Coronal and sagittal reformats are submitted. All CT scans at [facility] use at least one of these dose optimization techniques: automated exposure control; mA and/or kV adjustment per patient size (includes targeted exams where dose is matched to clinical indication); or iterative reconstruction. CONTRAST: Omnipaque 350; 95 mL IV. DLP: 655.91 mGy.cm COMPARISON: 05/22/2021, 05/01/2020 07/28/2019, 01/04/2019 Lungs and central airway: Mild peripheral bilateral lower lobe groundglass attenuation, greatest in t he LEFT lower lobe. Mildly progressed since the prior study and most consistent with a mild pneumonit is. No focal nodule. Pleura: Normal. No pleural effusion. Heart and pericardium: Mildly enlarged. No effusion. Mediastinum and deep: Again noted is the bronchovascular soft tissue thickening beginning at the RIGH T hilum and extending along the bronchovascular structures into the RIGHT lower lobe. These changes h ave been present over several prior years with minimal progression. No obstruction of the airway. May be posttreatment related. No new or increasing size of mediastinal or hilar adenopathy. Vessels: Mild atherosclerosis aorta. Normal size pulmonary artery. Chest wall and lower neck: RIGHT subclavian Port-A-Cath in good position. Upper abdomen: Visualized liver is normal. No adrenal mass. Osseous structures: No destructive process. CT/CT chest w con* [id number] IMPRESSION: 1. Continued peripheral areas of mild pneumonitis in the lower lung espinoza but greatest on the LEFT. Some of the areas of pneumonitis have improved since the prior study while others have progressed. 2. Bronchovascular thickening at the RIGHT hilum extending into the RIGHT lowe r lobe is again identified. Minimal if any increase in size over this past missy ral years. No significant progression. 3. No new or enlarging mediastinal or hilar lymph nodes. 4. No adrenal mass.
== END 2021-08-29 11:54 | disposition home or self-care (01) ==
LOC: RAD 11:57
PROVIDERS: PCP Family Medicine; Visit Provider Internal Medicine Medical Oncology
DX: C34.31 Malignant neoplasm of lower lobe, right bronchus or lung (principal); J18.9 Pneumonia, unspecified organism
CPT/HCPCS: 71260; Q9967

== ENCOUNTER 2021-08-30 12:27 | Outpatient (CLI) | payer MEDICARE, SELFPAY ==
[2021-08-30 13:05] LABS: Basophils % 0.6 %; Eosinophils # 0.2 10^3/uL (0.0-0.8); Eosinophils % 2.4 %; Hematocrit 37.3 % (37.0-47.0); Lymphocytes # 2.7 10^3/uL (0.8-4.8); Lymphocytes % 42.6 %; Mean Corpuscular HGB Conc 32.2 g/dL (30.0-36.0); Mean Corpuscular Hemoglobin 32.6 pg (28.0-34.0); Mean Corpuscular Volume 101.4 fl (81-99); Monocytes # 0.4 10^3/uL (0.2-0.9); Monocytes % 6.7 %; Neutrophils # 2.95 10^3/uL (1.8-7.7); Neutrophils % 47.4 %; Nucleated Red Blood Cells % 0 %; Platelet Count 241 10^3/cmm (130-400); Red Blood Count 3.68 10^6/uL (4.1-5.3); Red Cell Distribution Width 14.9 % (12.1-15.1); White Blood Count 6.2 10^3/uL (4.0-10.0)
[2021-08-30 13:21] LABS: Alanine Aminotransferase 17 U/L (0-33); Albumin Level 4.6 g/dL (3.5-5.2); Alkaline Phosphatase 86 IU/L (35-105); Anion Gap 12.8 (5-19); Aspartate Amino Transferase 18 U/L (0-32); Blood Urea Nitrogen 13 mg/dL (6-20); Calcium 9.8 mg/dL (8.5-10.5); Carbon Dioxide 26 mmol/L (22-29); Chloride 101 mmol/L (98-107); Globulin 3.4 g/dL (1.3-4.6); Glucose 118 mg/dL (65-115); Osmolality Calculated 283 mOsm/kg (285-295); Potassium 3.8 mmol/L (3.5-5.1); Sodium 136 mmol/L (136-145); Total Bilirubin 0.2 mg/dL (0.15-1.2)
[2021-08-30 13:40] LABS: Slide Review Slide Review Perform
--- NOTE | 2021-09-01 10:42 | ONC FU_ITS ---
Dr. Lyle Patient Follow-Up Note Patient: Dali Veliz Unit #: [id number]: 1965 Dicatated By: Triston Lyle M.D.Date of Visit:Aug 30, 2021 Onc Med Follow-up/Prog Note Chief Complaint: Lung cancer. 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 On 12/31/2015 she was admitted to the hospital after presenting to the emergency room with confusion. She had significant hyponatremia with a serum sodium of 115 mmol/L. Chest x-ray was suspicious for consolidation at the right lung base. And chest CT showed near complete atelectasis and consolidation of the right lower lobe with suspected right hilar adenopathy. The hyponatremia resolved with IV replacement, and she was discharged on oral Levaquin. She was readmitted on 01/10/2016 with dizziness and numbness in the lower extremities associated with recurrence of the hyponatremia. She was then transferred to [facility] in [place]. She underwent bronchoscopy with endobronchial biopsy from the right lower lobe. 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 During the hospitalization she was treated with tolvaptan, and at discharge the sodium was normal at 138 mmol/L. Staging CT chest/abdomen/pelvis showed right hilar mass/adenopathy encasing the right bronchovascular structures with extension along the course of the right lower lobe bronchus. It appeared to measure 5.9 x 3.7 cm. Subcentimeter satellite nodules were noted within the superior segment of the right lower lobe and there are also scattered interstitial opacities within the lateral right lower lobe. These were felt to be nonspecific, possibly representing infectious or inflammatory foci, lymphangitic spread could not be excluded. There is no evidence of any other metastatic disease on those studies. MRI of the brain showed minimal chronic white matter ischemic changes with no evidence of metastatic involvement. She had further staging with PET/CT on 01/20/2016. That study showed FDG avid mass surrounding the bronchovascular bundle the right lower lobe. It measured 3.7 x 4.2 x 6.8 cm. It did appear to come within 2 cm of the debby. There was no evidence of any metastatic involvement. She began a course of chemotherapy with cisplatin/etoposide, cycle 1 day 1 on 01/31/2016. She also was referred to Dr. Aparicio for concurrent radiation, which she started on 02/06/2016. She was hospitalized on 02/13/2016 with UTI and sepsis. She was severely neutropenic with ANC 0. She was treated with cefepime and vancomycin and she was given 3 days of Neupogen. Her neutropenia resolved and she also improved clinically as her sepsis resolved. She was anemic and required 1 unit of PRBC's. She was also found to have recurrence of SIADH/hyponatremia. Her urine culture grew out Escherichia coli sensitive to Bactrim, and she was discharged with 7 days of Bactrim on 02/16/2016. She recovered uneventfully, and she was then able to continue her treatment. She was given a dose reduction with the second cycle, and thereafter she tolerated the chemotherapy well. She completed radiation to the right lung on 03/28/2016 to a total dose of 6600 cGy. She completed her 6th cycles of chemotherapy on 05/15 - 05/17/2016. Her restaging CT scan of the chest, abdomen, and pelvis performed on 06/10/2016 showed no evidence for recurrent pulmonary mass and no evidence of metastatic disease. She was then given prophylactic cranial radiation, which she completed on 07/01/2016 to a total dose of [address] of the chest on 11/29/2016 showed no evidence of disease progression. There were unchanged right perihilar upper, middle, and lower lobe post therapeutic changes. Repeat chest CT on 06/26/2017 showed no evidence of recurrence/progression of the lung cancer. Perihilar posttherapeutic changes appeared stable. She continued observation/expectant management. Her surveillance chest CT on 06/26/2018 showed new micronodular infiltrates in the inferior right upper lobe along the fissure and about the right hilum. There were additional nodular infiltrates in the superior segment of the right lower lobe. Also noted was bronchovascular thickening along the right hilum and infrahilar region. All of this appeared significantly progressed compared to the prior study. The findings were consistent with infectious etiology but with recurrent/progressive disease not excluded. As her clinical status at that point appeared stable, I had just recommend close observation. Her repeat chest CT on 01/04/2019 showed resolution of the previously described micronodular infiltrates along the fissure. There was persistent soft tissue and bronchovascular thickening involving the right hilum. There was no mediastinal or hilar lymphadenopathy noted. Overall, there was no evidence for recurrence/progression of the lung cancer and no evidence of other acute findings. Surveillance chest CT on 07/28/2019 soft tissue and bronchovascular thickening involving the right hilum which appeared unchanged since the prior studies. There were no new parenchymal abnormalities noted and there was no mediastinal or hilar lymphadenopathy noted. She underwent hysterectomy/bilateral salpingo-oophorectomy on 01/13/2020. There was no evidence of malignancy. Her surveillance chest CT 05/01/2020 showed stable soft tissue and bronchovascular thickening along the right hilum. There was no evidence of disease recurrence/progression. She continued expectant management for the lung cancer. Her other medical illnesses include GERD, mild degenerative arthritis, and chronic anxiety. She has a history of nephrolithiasis. She has history of smoking 1 pack of cigarettes daily for 30 years. She quit smoking in 2015. INTERIM HISTORY: Her surveillance CT scans on 05/22/2021 showed soft tissue bronchovascular thickening along the right hilum, unchanged in appearance compared to prior studies. New patchy slightly nodular infiltrates in the right lower lobe appeared consistent with pneumonitis. There was no mediastinal lymphadenopathy and there was no evidence of metastatic disease in the abdomen or pelvis. With those findings, she continued expectant management. Surveillance chest CT on 08/29/2021 showed continued peripheral areas of mild pneumonitis in the lower lung espinoza, but greatest on the left. In some areas there was improvement compared to the prior studies, but other areas were noted to have progressed. There was minimal if any increase in the size of the bronchovascular thickening in the right hilum extending into the right lower lobe. There were no new or enlarging mediastinal or hilar lymph nodes. She is seen for a follow-up visit. Subsequent to her last visit she was diagnosed with COVID-19 virus infection. She says she was not real sick, and she did receive a monoclonal antibody infusion. She says her energy is still up and down, but she is able to do light work. ECOG score is 1. Her appetite has increased. She has not had fever. She sometimes has sweating at night. She complains of having a drippy nose. She has not had sore mouth or throat. She does not complain of cough. She says her breathing has been good, and she has not been having chest pain. She was having acid reflux a couple of weeks ago, that seems to have resolved. She has ongoing problems with constipation. She has no other GI or complaints. She complains that her knees ache and hurt. She has headache just above her eyes. She thinks it is sinus related. She sometimes has numbness in her feet. She has no other focal neurologic symptoms. Medications: B-12 1 (500 mcg) Tablet Oral daily, Biotin 1 (53443 mcg) Capsule Oral daily, Docusate Calcium 1 (240 mg) Capsule Oral PRN, Flonase 2 spray(s) (of 50 mcg/act) Suspension Nasal four times a day PRN, Furosemide 1 (40 mg) Tablet Oral daily PRN, Gabapentin 1 Capsule (of 300 mg) Oral t.i.d., Hair Skin & Nails Gummies 2 (1250-7.5-7.5 mcg-mg-unt) Tablet, chewable Oral daily, Multivital-M 1 Tablet Oral daily Allergies: Aspirin, Keflex, Levaquin, Morphine Sulfate, Penicillin V Potassium, and Vancomycin HCl. Vital Signs: Performed on Aug 30, 2021 14:32 Height - 64.00 in BP - 134/84 mm(hg) Performed on Aug 30, 2021 14:30 Height - 64.00 in Weight - 154.8 lbs (LOW) BSA - 1.75 sq.m BMI - 26.57 Temperature - 96.4 F (LOW) Pulse - 68 /min Respiration - 18 /min BP - 160/94 mm(hg) (HIGH) O2 Sat - 99 % Pain - 0 Fatigue - 3 Physical Examination: Constitutional - She looks pretty good generally, Eyes - Sclerae nonicteric. Conjunctivae clear, ENMT - No lesions noted in the oral cavity, Hematologic/Lymphatic - No cervical, clavicular, or axillary adenopathy, Respiratory - Lungs sound clear with slightly diminished air movement on the right, Cardiovascular - Heart rhythm is regular with a mild tachycardia. There is no murmur, gallop, or rub noted, Abdomen - Mildly distended. Liver and spleen are not enlarged. There is no abdominal mass or ascites noted and there is no inguinal adenopathy, Extremities - There are mild venous stasis changes, and there is slight edema, Neurologic - No focal neurologic deficits noted. Lab/Imaging: Test performed on Aug 30, 2021 12:48 Sodium 136 mmol/L Potassium 3.8 mmol/L Chloride 101 mmol/L CO2 26 mmol/L Anion Gap 12.8 BUN 13 mg/dL Creatinine 0.6 mg/dL Cr Clearance (Est) 114.67 mL/min eGFR 103.0 mL/min Glucose 118 mg/dL Osmolality - Calculated 283 mOsm/kg Calcium 9.8 mg/dL Protein, Total 8.0 g/dL Albumin 4.6 g/dL Globulin 3.4 g/dL Bilirubin, Total 0.2 mg/dL ALT (SGPT) 17 U/L AST (SGOT) 18 U/L Alkaline Phosphatase 86 IU/L WBC 6.2 10 3/uL RBC 3.68 10 6/uL HGB 12.0 g/dL HCT 37.3 % MCV 101.4 fl MCH 32.6 pg MCHC 32.2 g/dL RDW 14.9 % Platelet Count 241 10 3/cmm MPV 11.0 fL Neutrophils 2.95 10 3/uL Lymphocytes 2.7 10 3/uL Monocytes 0.4 10 3/uL Eosinophils 0.2 10 3/uL Basophils 0.0 10 3/uL Neutrophil % 47.4 % Lymphocyte % 42.6 % Monocyte % 6.7 % Eosinophil % 2.4 % Basophils % 0.6 % NRBC % 0 % CBC Slide Review Slide Review Perform SLIDE REVIEW AGREES WITH AUTOMATED RESULTS ST Problem List: 1. Small cell carcinoma involving the lower lobe of the right lung. Her disease appeared to be at least stage IIIA (T4, N0, M0), but with limited stage disease clinically. She had associated hyponatremia at initial diagnosis December 2015. 2. GERD. 3. Degenerative arthritis. 4. History of nephrolithiasis. 5. Chronic anxiety. 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 Her disease appeared to be at least stage IIIA (T4, N0, M0), but with limited stage disease clinically. She had associated hyponatremia, presumably SIADH. She underwent definitive chemoradiation utilizing cisplatin/etoposide for chemosensitization. Cycle 1 of chemotherapy began 01/31/2016. It was complicated by severe neutropenia with associated urinary tract infection/sepsis. She recovered uneventfully and she was able to continue her treatment. She received a dose reduction with the 2nd cycle of chemotherapy, and thereafter she tolerated it well. She completed radiation to the right lung on 03/28/2016 to a total dose of 6600 cGy. She completed 6 cycles of chemotherapy in May 2016. She appeared to have a complete response by restaging CT scans in June 2016. She was then given prophylactic cranial irradiation, completed on 07/01/2016 to a total dose of 2500 cGy. She was then followed on expectant management. During follow-up she has had some fatigue and she also has had persistent neuropathy symptoms. Her recent chest CT scans have shown some evidence of pneumonitis, which may be related to COVID-19 virus infection. Thus far there has been no evidence of recurrence of the lung cancer. She continues on expectant management. I will see her again in 3 months. Signed By: Triston Lyle M.D. <<Signature on File>>
== END 2021-08-30 12:28 | disposition home or self-care (01) ==
PROVIDERS: PCP Family Medicine; Visit Provider Internal Medicine Medical Oncology
DX: Z08 Encounter for follow-up examination after completed treatment for malignant neoplasm (principal); Z85.118 Personal history of other malignant neoplasm of bronchus and lung; Z92.3 Personal history of irradiation; Z92.21 Personal history of antineoplastic chemotherapy; Z86.16 Personal history of COVID-19
CPT/HCPCS: 36591; 80053; 85025; 99214

== ENCOUNTER → 2021-10-15 12:36 | Outpatient (BNVA) | payer MEDICARE, SELFPAY | PROVIDERS: PCP Family Medicine; Visit Provider Obstetrics & Gynecology | DX: Z01.411 Encounter for gynecological examination (general) (routine) with abnormal findings (principal); N87.1 Moderate cervical dysplasia; Z90.710 Acquired absence of both cervix and uterus | CPT/HCPCS: 87624 ==

== ENCOUNTER 2021-12-26 11:30 | Oncology outpatient (recurring) (ONCR) | payer MEDICARE, SELFPAY ==
--- NOTE | 2021-12-24 11:52 | CT_ITS ---
WS: [id number] CT CHEST WITH INTRAVENOUS CONTRAST HISTORY: Bronchitis, history of lung cancer. TECHNIQUE: Contiguous 5 mm axial imaging performed on the thorax. Coronal and sagittal reformats are submitted. All CT scans at [facility] use at least one of these dose optimization techniques: automated exposure control; mA and/or kV adjustment per patient size (includes targeted exams where dose is matched to clinical indication); or iterative reconstruction. CONTRAST: Omnipaque 350; 75 mL IV. DLP: 212.96 mGy-cm. COMPARISON: 08/29/2021 and 05/22/2021 Lungs and central airway: Mild pulmonary hyperexpansion. Continued RIGHT hilar bronchovascular thicke papito measuring up to 5 mm. Bronchovascular thickening continues from the RIGHT hilum along the RIGHT lower lobe bronchovascular tree. Similar to the prior study of 08/29/2021 with mild improvement since 05/22/2021. No new mass or pneumonia. 8mm lymph node at the RIGHT hilum is stable. Pleura: Normal. No pleural effusion. Heart and pericardium: Normal size heart with no pericardial effusion. Mediastinum and deep: No new lymph nodes. RIGHT subclavian Mediport. Tip in the distal SVC. Vessels: Atherosclerosis aorta. Normal size pulmonary artery. Chest wall and lower neck: No soft tissue masses. Upper abdomen: Small hiatal hernia. No adrenal mass. Visualized liver is normal. Osseous structures: Mild curvature scoliosis thoracic spine. CT/CT chest w con* [id number] IMPRESSION: 1. No pneumonia. 2. No new pulmonary mass or nodule. 3. Stable RIGHT hilar and RIGHT lower lobe bronchovascular thickening.
[2021-12-24] MEDS: iohexol 350 mg/mL 100 mL Btl IV (12:09)
[2021-12-26 12:06] VITALS: BMI 27.8
[2021-12-26 12:24] LABS: Basophils % 0.2 %; Eosinophils % 0.2 %; Hematocrit 33.1 % (37.0-47.0); Hemoglobin 10.3 g/dL (11.5-15.3); Lymphocytes # 1.8 10^3/uL (0.8-4.8); Lymphocytes % 20.8 %; Mean Corpuscular HGB Conc 31.1 g/dL (30.0-36.0); Mean Corpuscular Hemoglobin 32.1 pg (28.0-34.0); Mean Corpuscular Volume 103.1 fl (81-99); Mean Platelet Volume 10.3 fL (7.4-10.4); Monocytes # 0.5 10^3/uL (0.2-0.9); Monocytes % 5.6 %; Neutrophils # 6.26 10^3/uL (1.8-7.7); Neutrophils % 72.5 %; Nucleated Red Blood Cells % 0 %; Platelet Count 301 10^3/cmm (130-400); Red Blood Count 3.21 10^6/uL (4.1-5.3); Red Cell Distribution Width 14.4 % (12.1-15.1); White Blood Count 8.6 10^3/uL (4.0-10.0)
[2021-12-26 13:13] LABS: Alanine Aminotransferase 28 U/L (0-33); Albumin Level 4.1 g/dL (3.5-5.2); Alkaline Phosphatase 107 IU/L (35-105); Anion Gap 14.4 (5-19); Aspartate Amino Transferase 19 U/L (0-32); Blood Urea Nitrogen 18 mg/dL (6-20); Carbon Dioxide 27 mmol/L (22-29); Chloride 101 mmol/L (98-107); Globulin 2.7 g/dL (1.3-4.6); Glomerular Filtration Rate 86.2 mL/min (90-130); Glucose 117 mg/dL (65-115); Osmolality Calculated 289 mOsm/kg (285-295); Potassium 4.4 mmol/L (3.5-5.1); Sodium 138 mmol/L (136-145); Total Bilirubin 0.2 mg/dL (0.15-1.2); Total Protein 6.8 g/dL (6.6-8.7)
[2021-12-26 14:59] LABS: Ferritin 85 ng/mL (15-150); Iron 37 ug/dL (37-145); Percent Saturation 12.5 % (20-50); Total Iron Binding Capacity 294 mcg/dl; Unsaturated Iron Binding 257 ug/dL (112-347)
== END 2022-01-06 23:59 | disposition home or self-care (01) ==
LOC: ONCMED 11:38
PROVIDERS: PCP Family Medicine; Referring Provider General Practice; Visit Provider Internal Medicine Medical Oncology
DX: Z08 Encounter for follow-up examination after completed treatment for malignant neoplasm (principal); Z85.118 Personal history of other malignant neoplasm of bronchus and lung; E87.1 Hypo-osmolality and hyponatremia; D64.9 Anemia, unspecified; Z87.891 Personal history of nicotine dependence; Z79.899 Other long term (current) drug therapy; Z92.21 Personal history of antineoplastic chemotherapy; Z92.3 Personal history of irradiation
CPT/HCPCS: 36415; 36591; 71260; 80053; 82728; 83540; 83550; 85025; 99214

== ENCOUNTER 2022-01-03 08:25 | Outpatient (CLI) | payer MEDICARE, SELFPAY ==
--- NOTE | 2022-01-03 08:28 | MM_ITS ---
WS: [id number] Exam: [place] [id number] Date/Time of Exam: 01/03/2022 8:28 AM Reason For Exam: SCREENING VIEWS: MLO and CC views both breasts. 3D digital tomosynthesis is also included in this exam. Comparison made with prior exam of 06/28/2016, 07/23/2017, 08/03/2018, 11/13/2020.. Findings: There was no sign of mass, architectural distortion or suspicious calcification in either breast. Sc attered fibroglandular densities MM/[place] [id number] Impression: BI-RADS: 2-Benign FOLLOW-UP: 1 Year Follow-up This mammogram was also analyzed by the Computer Aided Detection System R2 Imag e Tuber Machine Operator.
== END 2022-01-03 08:26 | disposition home or self-care (01) ==
LOC: RAD 08:25
PROVIDERS: PCP Family Medicine; Visit Provider Obstetrics & Gynecology
DX: Z12.31 Encounter for screening mammogram for malignant neoplasm of breast (principal)
CPT/HCPCS: 77063; 77067

== ENCOUNTER 2022-02-06 12:24 | Oncology outpatient (recurring) (ONCR) | payer MEDICARE, SELFPAY ==
[2022-02-06 13:21] LABS: Hematocrit 36.6 % (37.0-47.0); Hemoglobin 11.9 g/dL (11.5-15.3); Mean Corpuscular HGB Conc 32.5 g/dL (30.0-36.0); Mean Corpuscular Hemoglobin 33.1 pg (28.0-34.0); Mean Corpuscular Volume 101.7 fl (81-99); Mean Platelet Volume 10.3 fL (7.4-10.4); Platelet Count 232 10^3/cmm (130-400); Red Cell Distribution Width 14.6 % (12.1-15.1); White Blood Count 5.9 10^3/uL (4.0-10.0)
[2022-02-06 13:42] LABS: Ferritin 11 ng/mL (15-150); Iron 67 ug/dL (37-145); Magnesium 2.6 mg/dL (1.7-2.3); Percent Saturation 20.7 % (20-50); Total Iron Binding Capacity 323 mcg/dl; Unsaturated Iron Binding 256 ug/dL (112-347)
[2022-02-06 13:45] LABS: Total Cells Counted 100 (0-100)
[2022-02-06 13:46] LABS: Absolute Neutrophil 3.2 10^3/cmm (1.4-6.5); Band Neutrophils Absolute 0.2 10^3/cmm (0.0-1.2); Eosinophils 1 %; Lymphocytes 26 %; Lymphocytes Absolute 2.4 10^3/cmm (1.2-3.4); Monocytes Absolute 0.3 10^3/cmm (0.1-0.6); Platelet Estimate Normal (Normal); Segmented Neutrophils 50 %
--- NOTE | 2022-02-06 15:10 | PC.NURSE ---
CBC, TIBC, Ferritin, FE, and Mg results shown to Dr. Lyle, faxed to Dr. Hendrickson, and called to pt. Per Dr. Lyle, pt is to continue taking OTC FE 1 dly and will recheck next month as scheduled. If FE level is still low will give IV FE after approved by pt's insurance. Pt voiced understanding/lc
== END 2022-02-06 23:59 | disposition home or self-care (01) ==
PROVIDERS: Nurse Practitioner Family; PCP Family Medicine; Visit Provider Internal Medicine Medical Oncology
DX: D64.9 Anemia, unspecified (principal); R25.2 Cramp and spasm; C34.31 Malignant neoplasm of lower lobe, right bronchus or lung
CPT/HCPCS: 36591; 82728; 83540; 83550; 83735; 85007; 85025

== ENCOUNTER → 2022-03-27 13:07 | Outpatient (BNVA) | payer MEDICARE, SELFPAY | PROVIDERS: PCP Family Medicine; Visit Provider Family Medicine | DX: R05.9 Cough, unspecified (principal); Z20.822 Contact with and (suspected) exposure to COVID-19 | CPT/HCPCS: 87400; 87426 ==

== ENCOUNTER 2022-03-28 10:41 | Outpatient (CLI) | payer MEDICARE, SELFPAY ==
--- NOTE | 2022-03-28 11:00 | CTR_ITS ---
PROCEDURE INFORMATION: Exam: CT Chest With Contrast; Diagnostic Exam date and time: 03/28/2022 11:49 AM Age: 56 years old Clinical indication: Condition or disease; Lung condition and disease; Cancer of the lung; Bilateral; Unspecified; Follow-up oncological assessment; Additional info: Surveillance TECHNIQUE: Imaging protocol: Diagnostic computed tomography of the chest with contrast. Radiation optimization: All CT scans at this facility use at least one of these dose optimization techniques: automated exposure control; mA and/or kV adjustment per patient size (includes targeted exams where dose is matched to clinical indication); or iterative reconstruction. Contrast material: OMNI 350; Contrast volume: 80 ml; Contrast route: INTRAVENOUS (IV); COMPARISON: CT chest w con* [id number] 12/24/2021 11:55 AM RADIATION DOSE METRICS: Total DLP (mGy-cm): 638.71 FINDINGS: Tubes, catheters and devices: Right-sided Port-A-Cath terminates in the right atrium. Probable small amount of thrombus or fibrin sheath along the catheter, similar to prior. Lungs: Similar soft tissue thickening in the right perihilar region. New small hazy area of consolidation and tree-in-bud nodularity in the left lower lobe is likely infectious or inflammatory. Pleural spaces: Unremarkable. No pneumothorax. No pleural effusion. Heart: Unremarkable. No cardiomegaly. No pericardial effusion. Lymph nodes: Unremarkable. No enlarged lymph nodes. Vasculature: Unremarkable. No aortic aneurysm. Bones/joints: Unremarkable. No acute fracture. Soft tissues: Unremarkable. CT/CT chest w con* [id number] IMPRESSION: 1. Stable right perihilar soft tissue thickening. 2. New small area of hazy consolidation and tree-in-bud nodularity in the left lower lobe is likely infectious or inflammatory. Attention is recommended on follow-up imaging.
[2022-03-28] MEDS: iohexol 350 mg/mL 100 mL Btl IV (12:02)
== END 2022-03-28 10:42 | disposition home or self-care (01) ==
LOC: RAD 10:45
PROVIDERS: PCP Family Medicine; Visit Provider Nurse Practitioner Family
DX: C34.90 Malignant neoplasm of unspecified part of unspecified bronchus or lung (principal)
CPT/HCPCS: 71260

== ENCOUNTER 2022-04-01 12:25 | Oncology outpatient (recurring) (ONCR) | payer MEDICARE, SELFPAY ==
[2022-04-01 13:43] LABS: Basophils % 0.3 %; Eosinophils # 0.2 10^3/uL (0.0-0.8); Eosinophils % 2.3 %; Hematocrit 32.8 % (37.0-47.0); Hemoglobin 11.1 g/dL (11.5-15.3); Lymphocytes # 2.1 10^3/uL (0.8-4.8); Lymphocytes % 27.9 %; Mean Corpuscular HGB Conc 33.8 g/dL (30.0-36.0); Mean Corpuscular Hemoglobin 34.6 pg (28.0-34.0); Mean Corpuscular Volume 102.2 fl (81-99); Monocytes # 0.6 10^3/uL (0.2-0.9); Neutrophils # 4.49 10^3/uL (1.8-7.7); Neutrophils % 60.8 %; Nucleated Red Blood Cells % 0 %; Platelet Count 226 10^3/cmm (130-400); Red Blood Count 3.21 10^6/uL (4.1-5.3); Red Cell Distribution Width 13.9 % (12.1-15.1); White Blood Count 7.4 10^3/uL (4.0-10.0)
[2022-04-01 14:08] LABS: Alanine Aminotransferase 15 U/L (0-33); Albumin Level 3.8 g/dL (3.5-5.2); Alkaline Phosphatase 100 U/L (35-105); Anion Gap 11.1 (5-19); Aspartate Amino Transferase 19 U/L (0-32); Blood Urea Nitrogen 12 mg/dL (6-20); Calcium 9.2 mg/dL (8.5-10.5); Carbon Dioxide 27 mmol/L (22-29); Chloride 96 mmol/L (98-107); Globulin 3.5 g/dL (1.3-4.6); Glucose 99 mg/dL (65-115); Osmolality Calculated 270 mOsm/kg (285-295); Potassium 4.1 mmol/L (3.5-5.1); Sodium 130 mmol/L (136-145); Total Bilirubin 0.2 mg/dL (0.15-1.2); Total Protein 7.3 g/dL (6.6-8.7)
== END 2022-04-08 23:59 | disposition home or self-care (01) ==
PROVIDERS: Nurse Practitioner Family; PCP Family Medicine; Visit Provider Internal Medicine Medical Oncology
DX: Z08 Encounter for follow-up examination after completed treatment for malignant neoplasm (principal); Z85.118 Personal history of other malignant neoplasm of bronchus and lung; D64.9 Anemia, unspecified; Z79.899 Other long term (current) drug therapy; Z92.21 Personal history of antineoplastic chemotherapy; Z92.3 Personal history of irradiation; Z87.891 Personal history of nicotine dependence; K59.00 Constipation, unspecified
CPT/HCPCS: 36591; 80053; 85025; 99214

== ENCOUNTER 2022-05-14 13:20 | Oncology outpatient (recurring) (ONCR) | payer MEDICARE, SELFPAY ==
[2022-05-14 13:34] VITALS: BP 128/78; PULSE 110; RESP 16; TEMP 36.3; O2SAT 95
== END 2022-06-08 23:59 | disposition home or self-care (01) ==
PROVIDERS: PCP Family Medicine; Visit Provider Internal Medicine Medical Oncology
DX: Z45.2 Encounter for adjustment and management of vascular access device (principal); Z95.828 Presence of other vascular implants and grafts
CPT/HCPCS: 96523

== ENCOUNTER 2022-07-17 11:38 | Oncology outpatient (recurring) (ONCR) | payer MEDICARE, SELFPAY ==
[2022-07-17 12:13] LABS: Basophils % 0.3 %; Eosinophils # 0.1 10^3/uL (0.0-0.8); Eosinophils % 2.2 %; Hematocrit 35.4 % (37.0-47.0); Hemoglobin 11.2 g/dL (11.5-15.3); Lymphocytes # 2.6 10^3/uL (0.8-4.8); Lymphocytes % 43.1 %; Mean Corpuscular HGB Conc 31.6 g/dL (30.0-36.0); Mean Corpuscular Hemoglobin 32.2 pg (28.0-34.0); Mean Corpuscular Volume 101.7 fl (81-99); Mean Platelet Volume 9.7 fL (7.4-10.4); Monocytes # 0.4 10^3/uL (0.2-0.9); Neutrophils # 2.81 10^3/uL (1.8-7.7); Neutrophils % 47.2 %; Nucleated Red Blood Cells % 0 %; Platelet Count 220 10^3/cmm (130-400); Red Blood Count 3.48 10^6/uL (4.1-5.3); Red Cell Distribution Width 14.1 % (12.1-15.1)
[2022-07-17 12:36] LABS: Slide Review Slide Review Perform
[2022-07-17 12:42] LABS: Alanine Aminotransferase 15 U/L (0-33); Alkaline Phosphatase 82 U/L (35-105); Anion Gap 13.1 (5-19); Aspartate Amino Transferase 16 U/L (0-32); Blood Urea Nitrogen 18 mg/dL (6-20); Calcium 9.5 mg/dL (8.5-10.5); Carbon Dioxide 28 mmol/L (22-29); Chloride 102 mmol/L (98-107); Ferritin 51 ng/mL (15-150); Globulin 2.7 g/dL (1.3-4.6); Glomerular Filtration Rate 85.9 mL/min (90-130); Glucose 96 mg/dL (65-115); Iron 60 ug/dL (37-145); Osmolality Calculated 290 mOsm/kg (285-295); Percent Saturation 19.7 % (20-50); Potassium 4.1 mmol/L (3.5-5.1); Sodium 139 mmol/L (136-145); Total Bilirubin 0.2 mg/dL (0.15-1.2); Total Iron Binding Capacity 304 mcg/dl; Total Protein 6.7 g/dL (6.6-8.7); Unsaturated Iron Binding 244 ug/dL (112-347)
[2022-07-19 11:13] LABS: Thyroid Stimulating Hormone 2.79 uIU/mL (0.27-4.20)
== END 2022-08-06 23:59 | disposition home or self-care (01) ==
PROVIDERS: Nurse Practitioner; PCP Family Medicine; Visit Provider Internal Medicine Medical Oncology
DX: Z08 Encounter for follow-up examination after completed treatment for malignant neoplasm (principal); Z85.118 Personal history of other malignant neoplasm of bronchus and lung; E61.1 Iron deficiency; D64.9 Anemia, unspecified; G62.9 Polyneuropathy, unspecified; M79.605 Pain in left leg; M79.604 Pain in right leg; R53.83 Other fatigue; Z92.3 Personal history of irradiation; Z92.21 Personal history of antineoplastic chemotherapy; K59.00 Constipation, unspecified; Z87.891 Personal history of nicotine dependence
CPT/HCPCS: 36591; 80053; 82728; 83540; 83550; 84443; 85025; 99214

== ENCOUNTER 2022-09-19 11:57 | Outpatient (CLI) | payer MEDICARE, SELFPAY ==
--- NOTE | 2022-09-19 13:09 | USCV_ITS ---
Veliz Dali Age: 57 Gender: F : 1965 Exam Date: 09/19/2022 13:21 Ordering Phys: Jayne Green NP Technologist: CT Exam Location: [facility] [place]_ Indication: claudication Risk Factors: Previous Vascular Surgery: RIGHT LEFT BP: 137.0 / 77.00 BP: 137.0/ 87.00 0 0 Waveform Velocity (cm/s) Velocity (cm/s) Waveform Triphasic 198.5 Iliac Prox 129.6 Triphasic Triphasic 166.3 Iliac Mid 116.9 Triphasic Triphasic 0.0 Iliac Distal 111.9 Triphasic Triphasic 118.9 CLOTH WEIGHER 98.2 Triphasic Triphasic 95.2 SFA Prox 77.7 Triphasic Triphasic 73.8 SFA Mid 94.1 Triphasic Triphasic SFA Dist Triphasic 72.9 82.8 Triphasic 54.5 POP 49.5 Triphasic Biphasic 45.8 GROUP CAPTAIN 44.7 Biphasic Biphasic 63.9 DPA 54.2 Triphasic 1.0 LUCILLE 1.0 FINDINGS Intimal thickening and minimal plaque in the iliac and femoral arteries bilaterally Normal Doppler flow velocities and near normal Doppler waveforms Resting LUCILLE 1.0, bilaterally CONCLUSIONS 1. Normal resting ABIs bilaterally 2. Intimal thickening and minimal plaques in the iliac and femoral arteries bilaterally 3. No significant arterial obstruction, based on the above findings Dr Shaista Davila MD [facility] (Electronically Signed) Final Date: 19 September 2022 18:58 S
== END 2022-09-19 11:58 | disposition home or self-care (01) ==
LOC: RAD 12:05
PROVIDERS: PCP Family Medicine; Visit Provider Nurse Practitioner
DX: M79.604 Pain in right leg (principal); M79.605 Pain in left leg; I73.9 Peripheral vascular disease, unspecified
CPT/HCPCS: 93925

== ENCOUNTER 2022-10-09 10:29 | Outpatient (CLI) | payer MEDICARE, SELFPAY ==
--- NOTE | 2022-10-09 11:00 | CTR_ITS ---
PROCEDURE INFORMATION: Exam: CT Chest With Contrast; Diagnostic Exam date and time: 10/09/2022 11:20 AM Age: 57 years old Clinical indication: Condition or disease; Lung condition and disease; Cancer of the lung; Bilateral; Unspecified; Primary cancer: Lung cancer; Follow-up oncological assessment; Prior surgery; Surgery type: Port; Additional info: Followup 2021 exam TECHNIQUE: Imaging protocol: Diagnostic computed tomography of the chest with contrast. Radiation optimization: All CT scans at this facility use at least one of these dose optimization techniques: automated exposure control; mA and/or kV adjustment per patient size (includes targeted exams where dose is matched to clinical indication); or iterative reconstruction. Contrast material: OMNI 350; Contrast volume: 95 ml; Contrast route: INTRAVENOUS (IV); REPORTING DATA: Count of CT and Cardiac NM exams in prior 12 months: This patient has received 2 known CTs and 0 known cardiac nuclear medicine studies in the 12 months prior to the current study. COMPARISON: CT chest w con* [id number] 03/28/2022 11:49 AM RADIATION DOSE METRICS: Total DLP (mGy-cm): 255.55 FINDINGS: Tubes, catheters and devices: Right side Port-A-Cath is seen as noted with prior exam, terminating in the right atrium. Lungs: Soft tissue thickening in the right perihilar region appears stable are unchanged with prior exam. Chronic appearing apical pleural thickening also noted, unchanged with prior exam. Lung windows show no pulmonary parenchymal infiltrate or ground-glass opacity, with interval resolution of previous small area of hazy opacity in the left lower lobe from previous exam. Pleural spaces: No pleural effusion. No pneumothorax.. Heart: Unremarkable. No cardiomegaly. No pericardial effusion. Lymph nodes: Unremarkable. No enlarged lymph nodes. Vasculature: Mild arteriosclerosis of the thoracic aorta and no dissection or aneurysm. Pulmonary arteries appear unremarkable. Bones/joints: Mild thoracic scoliosis with mild spondylotic change thoracic spine. Visualized liver and adrenal glands in the upper abdomen show no significant abnormality. Soft tissues: Unremarkable. CT/CT chest w con* [id number] IMPRESSION: 1. Stable right perihilar soft tissue thickening with prior exam. 2. Chronic apical pleural thickening bilaterally, stable with prior exam. 3. Interval resolution of small hazy opacity lower left lung with prior exam. 4. Otherwise, stable appearance of the chest with prior exam
[2022-10-09] MEDS: iohexol 350 mg/mL 500 mL Btl (per mL) IV (11:25)
== END 2022-10-09 10:30 | disposition home or self-care (01) ==
LOC: RAD 10:35
PROVIDERS: PCP Family Medicine; Visit Provider Nurse Practitioner
DX: C34.31 Malignant neoplasm of lower lobe, right bronchus or lung (principal)
CPT/HCPCS: 71260; Q9967

== ENCOUNTER 2022-10-29 07:53 | Outpatient (CLI) | payer MEDICARE, SELFPAY ==
--- NOTE | 2022-10-29 08:30 | USCV_ITS ---
Dali Veliz Age: 57 Gender: F : 1965 Exam Date: 10/29/2022 08:19 Ordering Phys: Triston Lyle MD Technologist: CT Exam Location: [facility] [place]_ Indication: hx of ca,pain PROCEDURES: Venous duplex imaging was performed in bilateral lower extremities. Bilaterally, the common femoral, superficial femoral, profunda femoral, popliteal, posterior tibial, greater saphenous veins, and the peroneal trunk were identified and interrogated in the standard fashion. These veins were found to be easily compressible with spontaneous blood flow. No evidence of insufficiency or thrombus noted. FINDINGS: no dvt, small fv's CONCLUSIONS No evidence of right lower extremity DVT. No evidence of left lower extremity DVT. Yannick Ortiz MD (Electronically Signed) Final Date: 29 Oct 2022 09:24 S
== END 2022-10-29 07:54 | disposition home or self-care (01) ==
LOC: RAD 07:55
PROVIDERS: PCP Family Medicine; Visit Provider Internal Medicine Medical Oncology
DX: M79.604 Pain in right leg (principal); M79.605 Pain in left leg; C34.31 Malignant neoplasm of lower lobe, right bronchus or lung
CPT/HCPCS: 93970

== ENCOUNTER 2022-10-29 10:00 | Oncology outpatient (recurring) (ONCR) | payer MEDICARE, SELFPAY ==
[2022-10-16 12:48] LABS: Basophils % 0.3 %; Eosinophils # 0.2 10^3/uL (0.0-0.8); Eosinophils % 2.5 %; Hematocrit 34.9 % (37.0-47.0); Hemoglobin 11.3 g/dL (11.5-15.3); Lymphocytes # 2.4 10^3/uL (0.8-4.8); Lymphocytes % 39.9 %; Mean Corpuscular HGB Conc 32.4 g/dL (30.0-36.0); Mean Corpuscular Hemoglobin 32.6 pg (28.0-34.0); Mean Corpuscular Volume 100.6 fl (81-99); Mean Platelet Volume 9.8 fL (7.4-10.4); Monocytes # 0.4 10^3/uL (0.2-0.9); Monocytes % 6.6 %; Neutrophils # 3.03 10^3/uL (1.8-7.7); Neutrophils % 50.4 %; Nucleated Red Blood Cells % 0 %; Platelet Count 242 10^3/cmm (130-400); Red Blood Count 3.47 10^6/uL (4.1-5.3)
[2022-10-16 13:09] LABS: Alanine Aminotransferase 18 U/L (0-33); Albumin Level 4.4 g/dL (3.5-5.2); Alkaline Phosphatase 82 U/L (35-105); Anion Gap 17.5 (5-19); Aspartate Amino Transferase 18 U/L (0-32); Blood Urea Nitrogen 16 mg/dL (6-20); Calcium 8.7 mg/dL (8.5-10.5); Carbon Dioxide 26 mmol/L (22-29); Chloride 99 mmol/L (98-107); Ferritin 49 ng/mL (15-150); Globulin 2.9 g/dL (1.3-4.6); Glomerular Filtration Rate 85.9 mL/min (90-130); Glucose 129 mg/dL (65-115); Iron 65 ug/dL (37-145); Osmolality Calculated 291 mOsm/kg (285-295); Percent Saturation 19.7 % (20-50); Potassium 3.5 mmol/L (3.5-5.1); Sodium 139 mmol/L (136-145); Total Bilirubin 0.3 mg/dL (0.15-1.2); Total Iron Binding Capacity 329 mcg/dl; Total Protein 7.3 g/dL (6.6-8.7); Unsaturated Iron Binding 264 ug/dL (112-347)
[2022-10-16 13:24] LABS: Vitamin B12 259 pg/mL (232-1245)
[2022-10-16 13:25] LABS: Slide Review Slide Review Perform
[2022-10-29] MEDS: ferric carboxy (IVPB) 750 MG in sodium chloride 0.9% (100 ml) 100 ML 345 MG IV (09:33)
[2022-10-29 15:28] VITALS: BP 133/83; PULSE 81; RESP 18; TEMP 36.5; O2SAT 99
== END 2022-11-06 23:59 | disposition home or self-care (01) ==
PROVIDERS: PCP Family Medicine; Visit Provider Internal Medicine Medical Oncology
DX: D50.8 Other iron deficiency anemias (principal); M79.604 Pain in right leg; M79.605 Pain in left leg; C34.31 Malignant neoplasm of lower lobe, right bronchus or lung
CPT/HCPCS: 36591; 80053; 82607; 82728; 83540; 83550; 85025; 93970; 96365; 99214; J1439; J1642

== ENCOUNTER → 2022-11-21 10:00 | Outpatient (BNVA) | payer MEDICARE, SELFPAY | PROVIDERS: PCP Family Medicine; Visit Provider Nurse Practitioner Women's Health | DX: N87.1 Moderate cervical dysplasia (principal) | CPT/HCPCS: 87624 ==

== ENCOUNTER 2022-11-26 13:20 | Oncology outpatient (recurring) (ONCR) | payer MEDICARE, SELFPAY ==
[2022-11-26 13:29] VITALS: BP 115/75; PULSE 90; TEMP 36.5; O2SAT 99
[2022-11-26 13:55] LABS: Hematocrit 34.7 % (37.0-47.0); Hemoglobin 11.3 g/dL (11.5-15.3); Mean Corpuscular HGB Conc 32.6 g/dL (30.0-36.0); Mean Corpuscular Volume 104.5 fl (81-99); Mean Platelet Volume 9.8 fL (7.4-10.4); Platelet Count 250 10^3/cmm (130-400); Red Blood Count 3.32 10^6/uL (4.1-5.3); Red Cell Distribution Width 16.6 % (12.1-15.1); White Blood Count 6.3 10^3/uL (4.0-10.0)
[2022-11-26 14:08] LABS: Ferritin 533 ng/mL (15-150); Iron 79 ug/dL (37-145); Percent Saturation 35.2 % (20-50); Total Iron Binding Capacity 224 mcg/dl; Unsaturated Iron Binding 145 ug/dL (112-347)
[2022-11-26 15:12] LABS: Absolute Eosinophils 0.1 10^3/cmm (0.0-0.7); Absolute Neutrophil 2.8 10^3/cmm (1.4-6.5); Absolute Segmented Neutrophil 2.8 10/cmm (1.6-7.1); Basophils Absolute 0.1 10^3/cmm (0.0-0.2); Eosinophils 3 %; Lymphocytes 42 %; Lymphocytes Absolute 2.9 10^3/cmm (1.2-3.4); Macrocytosis 2+; Microcytosis Trace; Monocytes Absolute 0.3 10^3/cmm (0.1-0.6); Platelet Estimate Normal (Normal); Polychromasia Trace; Segmented Neutrophils 45 %; Total Cells Counted 100 (0-100)
== END 2022-12-06 23:59 | disposition home or self-care (01) ==
LOC: ONCMED 13:20
PROVIDERS: Nurse Practitioner; PCP Family Medicine; Visit Provider Internal Medicine Medical Oncology
DX: D50.8 Other iron deficiency anemias (principal)
CPT/HCPCS: 36591; 82728; 83540; 83550; 85007; 85025; J1642

== ENCOUNTER → 2022-11-28 15:18 | Outpatient (BNVA) | payer MEDICARE, SELFPAY | PROVIDERS: PCP Family Medicine; Visit Provider Dermatology | DX: L57.0 Actinic keratosis (principal); Z85.828 Personal history of other malignant neoplasm of skin; Z87.891 Personal history of nicotine dependence; D22.5 Melanocytic nevi of trunk; L82.1 Other seborrheic keratosis; I83.10 Varicose veins of unspecified lower extremity with inflammation | CPT/HCPCS: 17000; 99213 ==

== ENCOUNTER 2023-01-21 11:02 | Outpatient (CLI) | payer MEDICARE, SELFPAY ==
--- NOTE | 2023-01-21 11:24 | MM_ITS ---
WS: [id number] BILATERAL 3D TOMOSYNTHESIS DIGITAL SCREENING MAMMOGRAPHY WITH CAD CLINICAL INFORMATION: Z12.39 - Encounter for other screening for malignant neop... HISTORY: Screening mammogram. No current complaints. COMPARISON: 2021 TECHNIQUE: Bilateral CC and MLO views. FINDINGS: Scattered fibroglandular densities bilaterally. No suspicious focal mass, asymmetry, calcifications, or architectural distortion. No evidence of malignancy. Incidental punctate and lucent centered calci fications. Biopsy clip left breast. IMPRESSION: MM/[place] [id number] BI-RADS: 2-Benign FOLLOW UP: 1 Year Follow-up Recommend return to annual screening mammography.
== END 2023-01-21 11:03 | disposition home or self-care (01) ==
LOC: RAD 11:07 → MOBLMAM 11:23
PROVIDERS: PCP Family Medicine; Visit Provider Family Medicine
DX: Z12.31 Encounter for screening mammogram for malignant neoplasm of breast (principal)
CPT/HCPCS: 77063; 77067

== ENCOUNTER → 2023-03-31 14:56 | Outpatient (BNVA) | payer MEDICARE, SELFPAY | PROVIDERS: PCP Family Medicine; Visit Provider Dermatology | DX: L57.0 Actinic keratosis (principal); I83.10 Varicose veins of unspecified lower extremity with inflammation; D22.5 Melanocytic nevi of trunk; L82.1 Other seborrheic keratosis; Z85.828 Personal history of other malignant neoplasm of skin | CPT/HCPCS: 17000; 99213 ==

== ENCOUNTER 2023-07-07 13:25 | Oncology outpatient (recurring) (ONCR) | payer MEDICARE, SELFPAY ==
[2023-07-07 13:40] VITALS: BP 127/68; PULSE 100; RESP 18; TEMP 36.8; O2SAT 96
[2023-07-07 13:55] LABS: Basophils % 0.4 %; Eosinophils # 0.2 10^3/uL (0.0-0.8); Hematocrit 36.7 % (36-47); Lymphocytes # 2.6 10^3/uL (0.8-4.8); Lymphocytes % 33.2 %; Mean Corpuscular HGB Conc 32.7 g/dL (30-55); Mean Corpuscular Hemoglobin 34.7 pg (27-33); Mean Corpuscular Volume 106.1 fl (85-98); Mean Platelet Volume 9.7 fL (7.4-10.4); Monocytes # 0.5 10^3/uL (0.2-0.9); Neutrophils # 4.35 10^3/uL (1.8-7.7); Nucleated Red Blood Cells % 0 %; Platelet Count 205 10^3/cmm (157-399); Red Blood Count 3.46 10^6/uL (3.85-5.65); Red Cell Distribution Width 13.4 % (12.1-15.1); White Blood Count 7.75 10^3/uL (3.29-11.43)
[2023-07-07 15:11] LABS: Alanine Aminotransferase 29 U/L (0-33); Albumin Level 3.9 g/dL (3.5-5.2); Alkaline Phosphatase 79 U/L (35-105); Aspartate Amino Transferase 28 U/L (0-32); Blood Urea Nitrogen 14 mg/dL (6-20); Calcium 8.9 mg/dL (8.5-10.5); Carbon Dioxide 28 mmol/L (22-29); Chloride 101 mmol/L (98-107); Ferritin 252 ng/mL (15-150); Globulin 2.9 g/dL (1.3-4.6); Glomerular Filtration Rate 85.6 mL/min (90-130); Glucose 87 mg/dL (65-115); Iron 53 ug/dL (37-145); Osmolality Calculated 286 mOsm/kg (285-295); Percent Saturation 23.4 % (20-50); Sodium 138 mmol/L (136-145); Total Bilirubin 0.2 mg/dL (0.15-1.2); Total Iron Binding Capacity 226 mcg/dl; Total Protein 6.8 g/dL (6.6-8.7); Unsaturated Iron Binding 173 ug/dL (112-347)
[2023-07-07 15:59] LABS: Thyroid Stimulating Hormone 3.12 uIU/mL (0.27-4.20); Vitamin B12 423 pg/mL (232-1245)
== END 2023-07-09 23:59 | disposition home or self-care (01) ==
LOC: ONCMED 13:27
PROVIDERS: Internal Medicine; PCP Family Medicine; Visit Provider Internal Medicine Medical Oncology
DX: Z08 Encounter for follow-up examination after completed treatment for malignant neoplasm (principal); D50.8 Other iron deficiency anemias; R53.83 Other fatigue; Z85.118 Personal history of other malignant neoplasm of bronchus and lung; Z87.891 Personal history of nicotine dependence; Z92.21 Personal history of antineoplastic chemotherapy; Z92.3 Personal history of irradiation
CPT/HCPCS: 36591; 80053; 82607; 82728; 83540; 83550; 84443; 85025; 99213; J1642

== ENCOUNTER → 2023-07-24 13:47 | Outpatient (BNVA) | payer MEDICARE, SELFPAY | PROVIDERS: PCP Family Medicine; Visit Provider Family Medicine | DX: J06.9 Acute upper respiratory infection, unspecified (principal) | CPT/HCPCS: 87400; 87426 ==

== ENCOUNTER 2023-10-09 14:22 | Outpatient (CLI) | payer MEDICARE, SELFPAY ==
--- NOTE | 2023-10-09 15:30 | USCV_ITS ---
Dali Veliz Age: 58 Gender: F : 1965 Exam Date: 10/09/2023 14:27 Ordering Phys: Manuel Hendrickson MD Technologist: REYNA Exam Location: [facility] [place] Indication: LE LT Pain and Swelling HISTORY: Lower extremity swelling. Lower extremity pain. PROCEDURES: Venous duplex imaging was performed in only the left lower extremity. The following venous structures were evaluated: common femoral vein, profunda vein, proximal portion of the greater saphenous vein, superficial femoral vein, and the popliteal vein. In addition, the posterior tibial and peroneal trunk were evaluated. Serial compression, augmentation maneuvers, and spectral Doppler flow evaluation were performed. FINDINGS: No evidence of DVT seen in any vessel visualized at this time. CONCLUSIONS No evidence of left lower extremity DVT. Yannick Ortiz MD (Electronically Signed) Final Date: 09 Oct 2023 17:04 S
== END 2023-10-09 14:23 | disposition home or self-care (01) ==
LOC: RAD 14:23
PROVIDERS: PCP Family Medicine; Visit Provider Family Medicine
DX: M79.89 Other specified soft tissue disorders (principal); M79.662 Pain in left lower leg
CPT/HCPCS: 93971

== ENCOUNTER → 2023-11-27 14:20 | Outpatient (BNVA) | payer MEDICARE, SELFPAY | PROVIDERS: PCP Family Medicine; Visit Provider Nurse Practitioner Women's Health | DX: R87.622 Low grade squamous intraepithelial lesion on cytologic smear of vagina (LGSIL) (principal) | CPT/HCPCS: 87624 ==

== ENCOUNTER 2023-12-09 14:06 | Oncology outpatient (recurring) (ONCR) | payer MEDICARE, SELFPAY ==
--- OUTSIDE RECORDS SUMMARY | 2023-12-09 14:08 | XMS_ITS ---
Author Name Unknown Organization [facility] ALLERGIES AND ADVERSE REACTIONS No information ASSESSMENT No information CHIEF COMPLAINT No information Vital Signs Bpsitting Date Temperature Weight Height Spo2 Respiration Bmi Ti merecorded Pulse 125/65 023 00:00:0 0 96.8 164,0.00 5,4 null 20 28.2 13:58 null 110/70 016 00:00:0 0 98.2 116,0.00 5,4 null null 19.91 12:51 78 104/64 011 00:00:0 0 99.2 128,0.00 5,3 99 null 22.67 12:51 74 110/86 024 00:00:0 0 98.5 164,9.60 5,3 98 16 29.2 15:05 95 105/70 024 00:00:0 0 97.1 165,16.0 0 5,4 97 null 28.5 12:09 90 OBJECTIVE DATA No information PHYSICAL EXAMINATION No information TREATMENT PLAN No information PROBLEMS No information RESULTS No information REVIEW OF SYSTEMS No information SUBJECTIVE DATA No information MEDICATIONS No information
--- OUTSIDE RECORDS SUMMARY | 2023-12-09 14:08 | XMS_ITS | Continuity of Care Document ---
Author Name Unknown Organization [facility] Address [id number] [address] Phone Care Team Providers Care Radio Announcer Name Role Phone Unavailable Unavailable Unavailable Allergies, Adverse Reactions, Alerts Substance Reaction Status Criticality vancomycin Active No Information levofloxacin Active No Information aspirin Active No Information morphine Active No Information PENICILLIN Active No Information Medications Medication Instructions Dosage Effective Dates (start - stop) Status Comments gabapentin 600 mg tablet take 1 tablet by oral route 3 times every day 600 MG - Active MULTIVITAMINS WITH MINERALS HP (unknown strength) Not Available - Active VITAMIN C (unknown strength) Not Available - Active hydrocodone 5 mg-acetaminophen 325 mg tablet take 1 tablet by oral route every 6 hours as needed for pain from oral surgery - No Longer Active clindamycin 150 mg capsule take 2 capsules by oral route every 6 hours until gone for dental infection - No Longer Active PRILOSEC (unknown strength) take 2 packet by oral route every day mixed with 30 ml water, let sit 2-3 minutes, stir and drink within 30minutes Not Available - No Longer Active Procedures Procedure Date Post Op No Charge No Work Today/No Charge EDR Approval Note Post Op No Charge EDR Approval Note Extraction, Erupted Tooth Or Exposed Sonia t (Elevati Extraction, Erupted Tooth Or Exposed Sonia t (Elevati Extraction, Erupted Tooth Or Exposed Sonia t (Elevati Extraction, Erupted Tooth Or Exposed Sonia t (Elevati Extraction, Erupted Tooth Or Exposed Sonia t (Elevati Extraction, Erupted Tooth Or Exposed Sonia t (Elevati Extraction, Erupted Tooth Or Exposed Sonia t (Elevati Extraction, Erupted Tooth Or Exposed Sonia t (Elevati Extraction, Erupted Tooth Or Exposed Sonia t (Elevati EDR Approval Note Panoramic Film Intraoral ??? Periapical First Film Intraoral ??? Periapical Each Additional Film Intraoral ??? Periapical Each Additional Film Intraoral ??? Periapical Each Additional Film Comprehensive Oral Evaluation ??? New Or Established EDR Approval Note Advance Directives Directive Yes / No Effective Date File Name No Information Encounters Encounter Description Practice Location Reason(s) For Visit Diagnoses Date Provider Providers Copied on Encounter [facility], [id number], [id number], [place] tel:[phone] [facility] Encounter for dental exam and cleaning w/o abnormal findings No Information [facility], [id number], [id number], [place] tel:[phone] [facility] Encounter for dental exam and cleaning w/o abnormal findings No Information [facility], [id number], [id number], [place] tel:[phone] [facility] Encounter for dental exam and cleaning w/o abnormal findings No Information [facility], [id number], [id number], [place] tel:[phone] [facility] Encounter for dental exam and cleaning w/o abnormal findings No Information Family History Family Member Type Diagnosis Age At Onset No Information Payers Payer name Insurance type Covered libertarian ID Inocente beckford(s) No Information Social History Type Description Quantity Date Captured Comments Alcohol Use Details Unknown Caffeine Use Details Unknown Tobacco Use Status Ex-cigarette smoker 017 Smoking Status Former smoker Smoking Tobacco Use Details Cigarette: Age Stopped: 50 Cigarette: No Details Available Sex Female Gender Identity Female Chief Complaint And Reason For Visit No Information Reason For Referral Reason For Referral No Information History Of Present Illness Encounter Date Complaint History Of Prese nt Illness No Information Functional Status Date Functional Assessmen t No Information Instructions Date Instruction Additional Infor mation No Information Assessments Type Assessment Date No Information Patient Care Teams Name Effective Dates (start - stop) Status Members No Information
--- NOTE | 2023-12-09 14:30 | XR_ITS ---
WS: [id number] SCREENING DEXA SCAN [employer] CLINICAL INFORMATION: Z78.0 - Asymptomatic menopausal state COMPARISON: None. FINDINGS: The L1-L4 bone mineral density measures 1.052 g/cm2. This corresponds to a T score score of -1.1 and Z score of -0.2. Left femoral neck bone mineral density measures 0.930 g/cm2. This corresponds to a T score of -0.6 an d Z score of 0.1. Right femoral neck bone mineral density measures 0.925 g/cm2. This corresponds to a T score -0.7of an d Z score of 0.1. Mean femoral neck bone mineral density measures 0.928 g/cm2. This corresponds to a T score of -0.6 an d Z score of 0.1. XR/XR DEXA axial skeleton* [id number] IMPRESSION: Osteopenia lumbar spine. Normal bone mineralization femoral necks. Patient's FRAX calculated 10 year probability for major osteoporotic fracture i s 8.2% and osteoporotic hip fracture is 0.8%.
== END 2024-01-07 23:59 | disposition home or self-care (01) ==
LOC: RAD 14:06 → ONCMED 12-23 07:20
PROVIDERS: PCP Family Medicine; Visit Provider Nurse Practitioner Women's Health
DX: Z78.0 Asymptomatic menopausal state (principal); M85.88 Other specified disorders of bone density and structure, other site
CPT/HCPCS: 77080

== ENCOUNTER → 2023-12-31 13:34 | Outpatient (BNVA) | payer MEDICARE, SELFPAY | PROVIDERS: PCP Family Medicine; Visit Provider Nurse Practitioner Family | DX: D48.5 Neoplasm of uncertain behavior of skin (principal); L57.0 Actinic keratosis; M79.3 Panniculitis, unspecified; L82.1 Other seborrheic keratosis; Z85.828 Personal history of other malignant neoplasm of skin | CPT/HCPCS: 11102; 17000; 99213 ==

== ENCOUNTER → 2024-03-01 09:34 | Outpatient (BNVA) | payer MEDICARE, SELFPAY | PROVIDERS: PCP Family Medicine; Visit Provider Dermatology | DX: C44.311 Basal cell carcinoma of skin of nose (principal) | CPT/HCPCS: 17311 ==

== ENCOUNTER → 2024-03-22 10:42 | Outpatient (BNVA) | payer MEDICARE, SELFPAY | PROVIDERS: PCP Family Medicine; Visit Provider Dermatology | DX: L57.8 Other skin changes due to chronic exposure to nonionizing radiation (principal); C44.311 Basal cell carcinoma of skin of nose; Z48.817 Encounter for surgical aftercare following surgery on the skin and subcutaneous tissue; Z85.828 Personal history of other malignant neoplasm of skin | CPT/HCPCS: 99213 ==

== ENCOUNTER → 2024-04-16 07:09 | Outpatient (BNVA) | payer MEDICARE, SELFPAY | PROVIDERS: PCP Family Medicine; Visit Provider Family Medicine | DX: R30.0 Dysuria (principal) | CPT/HCPCS: 87077; 87086; 87184 ==

== ENCOUNTER 2024-04-28 13:14 | Outpatient (CLI) | payer MEDICARE, SELFPAY ==
--- NOTE | 2024-04-28 13:23 | MM_ITS ---
WS: [id number] VIEWS: MLO and CC views both breasts. 3D digital tomosynthesis is also included in this exam. Comparison made with prior exam of 06/28/2016, 07/23/2017, 08/03/2018, 01/21/2023, 11/13/2020, 01/03/2022.. Findings: There are scattered areas of fibroglandular density. No sign of suspicious mass, tumor calcification or architectural distortion. MM/MM scr BI tomosynthesis [id number] Impression: BI-RADS: 2 - Benign FOLLOW-UP: 1 Year Follow-up This mammogram was also analyzed by the Computer Aided Detection System [employer]2 [employer]ag [employer].
== END 2024-04-28 13:15 | disposition home or self-care (01) ==
LOC: RAD 13:16
PROVIDERS: PCP Family Medicine; Visit Provider Family Medicine
DX: Z12.31 Encounter for screening mammogram for malignant neoplasm of breast (principal); R92.323 Mammographic fibroglandular density, bilateral breasts
CPT/HCPCS: 77063; 77067

== ENCOUNTER → 2024-05-20 14:23 | Outpatient (BNVA) | payer MEDICARE, SELFPAY | PROVIDERS: PCP Family Medicine; Visit Provider Family Medicine | DX: R10.13 Epigastric pain (principal); Z51.81 Encounter for therapeutic drug level monitoring | CPT/HCPCS: 80053; 83690; 85025; 86141 ==

== ENCOUNTER 2024-05-24 14:53 | Oncology outpatient (recurring) (ONCR) | payer MEDICARE, SELFPAY ==
--- NOTE | 2024-05-24 15:00 | CTR_ITS ---
PROCEDURE INFORMATION: Exam: CT Abdomen And Pelvis With Contrast Exam date and time: 05/24/2024 4:55 PM Age: 59 years old Clinical indication: Abdominal pain; Localized; Right lower quadrant (rlq); Prior surgery; Surgery date: 6+ months; Surgery type: Kidney stone, hyst; Patient HX: HX of lung cancer; Additional info: Rlq abd pain TECHNIQUE: Imaging protocol: Computed tomography of the abdomen and pelvis with contrast. Radiation optimization: All CT scans at this facility use at least one of these dose optimization techniques: automated exposure control; mA and/or kV adjustment per patient size (includes targeted exams where dose is matched to clinical indication); or iterative reconstruction. Contrast material: OMNI 350; Contrast volume: 100 ml; Contrast route: INTRAVENOUS (IV); COMPARISON: CT chest abdpel w/*[id number] 05/22/2021 1:43 PM RADIATION DOSE METRICS: Total DLP (mGy-cm): 403.01 FINDINGS: Lungs: Lung bases are clear. No pleural effusion. Liver: Normal. No mass. Gallbladder and biliary ducts: Normal. No calcified stones. No ductal dilation. Pancreas: Normal. No ductal dilation. Spleen: Normal. No splenomegaly. Adrenal glands: Normal. No mass. Kidneys and ureters: Normal. No hydronephrosis. Stomach and bowel: Unremarkable. No obstruction. No mucosal thickening. Appendix: Appendix is not seen, however, there is no evidence of appendicitis. Intraperitoneal space: Unremarkable. No free air. No significant fluid collection. Vasculature: Unremarkable. No abdominal aortic aneurysm. Lymph nodes: Unremarkable. No enlarged lymph nodes. Urinary bladder: Unremarkable as visualized. Reproductive: Unremarkable as visualized. Bones/joints: Unremarkable. No acute fracture. Soft tissues: Unremarkable. CT/CT abdomen pelvis w con* [id number] IMPRESSION: No acute findings.
[2024-05-24] MEDS: iohexol 350 mg/mL 500 mL Btl (per mL) IV (17:03)
== END 2024-06-08 23:59 | disposition home or self-care (01) ==
LOC: RAD 14:55 → ONCMED 05-25 09:11
PROVIDERS: PCP Family Medicine; Visit Provider Family Medicine
DX: R10.31 Right lower quadrant pain (principal)
CPT/HCPCS: 74177

== ENCOUNTER → 2024-07-02 08:24 | Outpatient (BNVA) | payer MEDICARE, SELFPAY | PROVIDERS: PCP Family Medicine; Visit Provider Family Medicine | DX: N39.0 Urinary tract infection, site not specified (principal); R30.0 Dysuria | CPT/HCPCS: 81000; 81003; 87077; 87086; 87184 ==

== ENCOUNTER → 2024-07-23 10:55 | Outpatient (BNVA) | payer MEDICARE, SELFPAY | PROVIDERS: PCP Family Medicine; Visit Provider Nurse Practitioner Family | DX: L82.1 Other seborrheic keratosis (principal); L65.8 Other specified nonscarring hair loss; Z08 Encounter for follow-up examination after completed treatment for malignant neoplasm; Z85.828 Personal history of other malignant neoplasm of skin; D48.5 Neoplasm of uncertain behavior of skin; L57.0 Actinic keratosis | CPT/HCPCS: 11102; 17000; 99213 ==

== ENCOUNTER → 2024-08-24 07:47 | Outpatient (BNVA) | payer MEDICARE, SELFPAY | PROVIDERS: PCP Family Medicine; Visit Provider Dermatology | DX: C44.321 Squamous cell carcinoma of skin of nose (principal) | CPT/HCPCS: 17311 ==

== ENCOUNTER → 2024-09-02 10:35 | Outpatient (BNVA) | payer MEDICARE, SELFPAY | PROVIDERS: PCP Family Medicine; Visit Provider Dermatology | DX: C44.321 Squamous cell carcinoma of skin of nose (principal) | CPT/HCPCS: 99213 ==

== ENCOUNTER → 2024-09-23 09:42 | Outpatient (BNVA) | payer MEDICARE, SELFPAY | PROVIDERS: PCP Family Medicine; Visit Provider Dermatology | DX: C44.321 Squamous cell carcinoma of skin of nose (principal); L94.8 Other specified localized connective tissue disorders; L57.0 Actinic keratosis | CPT/HCPCS: 17000; 99213 ==

== ENCOUNTER → 2024-11-15 10:51 | Outpatient (BNVA) | payer MEDICARE, SELFPAY | PROVIDERS: PCP Family Medicine; Visit Provider Family Medicine | DX: Z00.00 Encounter for general adult medical examination without abnormal findings (principal); Z51.81 Encounter for therapeutic drug level monitoring | CPT/HCPCS: 80053; 80061; 82306; 85025 ==

== ENCOUNTER → 2024-11-16 09:42 | Outpatient (BNVA) | payer MEDICARE, SELFPAY | PROVIDERS: PCP Family Medicine; Visit Provider Family Medicine | DX: I10 Essential (primary) hypertension (principal) | CPT/HCPCS: 80053; 80061; 82306; 85025 ==

== ENCOUNTER 2024-11-17 11:36 | Outpatient (CLI) | payer MEDICARE, SELFPAY ==
[2024-11-17 12:07] LABS: Basophils % 0.4 %; Eosinophils # 0.2 10^3/uL (0.0-0.8); Hematocrit 36.7 % (36-47); Lymphocytes # 2.4 10^3/uL (0.8-4.8); Mean Corpuscular HGB Conc 31.6 g/dL (30-55); Mean Corpuscular Hemoglobin 34.8 pg (27-33); Mean Corpuscular Volume 110.2 fl (85-98); Mean Platelet Volume 10.5 fL (7.4-10.4); Monocytes # 0.4 10^3/uL (0.2-0.9); Monocytes % 7.6 %; Neutrophils # 2.58 10^3/uL (1.8-7.7); Neutrophils % 45.6 %; Nucleated Red Blood Cells % 0 %; Platelet Count 173 10^3/cmm (157-399); Red Blood Count 3.33 10^6/uL (3.85-5.65); Red Cell Distribution Width 14.1 % (12.1-15.1); White Blood Count 5.65 10^3/uL (3.29-11.43)
[2024-11-17 12:29] LABS: Alanine Aminotransferase 15 U/L (0-33); Albumin Level 3.9 g/dL (3.5-5.2); Alkaline Phosphatase 70 U/L (35-105); Aspartate Amino Transferase 18 U/L (0-32); Blood Urea Nitrogen 10 mg/dL (8-23); Calcium 8.5 mg/dL (8.5-10.5); Carbon Dioxide 24 mmol/L (22-29); Chloride 103 mmol/L (98-107); Chol HDL Ratio 6.68 mg/dL (0.0-4.40); Cholesterol 227 mg/dL (0-200); Globulin 2.9 g/dL (1.3-4.6); Glucose 81 mg/dL (65-115); HDL Cholesterol 34 mg/dL (60-100); LDL Cholesterol Calculated 157 mg/dL (50-129); LDL HDL Ratio 4.62 RATIO (0.00-3.22); Osmolality Calculated 280 mOsm/kg (285-295); Sodium 136 mmol/L (136-145); Total Bilirubin 0.3 mg/dL (0.15-1.2); Total Protein 6.8 g/dL (6.6-8.7); Triglycerides 181 mg/dL (0-150)
[2024-11-17 12:43] LABS: 25 Hydroxy Vitamin D 17 ng/mL (30-100)
[2024-11-17 12:44] LABS: Slide Review Slide Review Perform
== END 2024-11-17 11:37 | disposition home or self-care (01) ==
PROVIDERS: PCP Family Medicine; Visit Provider Family Medicine
DX: Z13.6 Encounter for screening for cardiovascular disorders (principal); Z00.00 Encounter for general adult medical examination without abnormal findings; E55.9 Vitamin D deficiency, unspecified; Z51.81 Encounter for therapeutic drug level monitoring; N18.9 Chronic kidney disease, unspecified; I10 Essential (primary) hypertension
CPT/HCPCS: 36415; 80053; 80061; 82306; 85025

== ENCOUNTER 2024-11-30 10:47 | Oncology outpatient (recurring) (ONCR) | payer MEDICARE, SELFPAY | END 2024-12-06 23:59 | disposition home or self-care (01) | LOC: ONCMED 10:49 | PROVIDERS: PCP Family Medicine; Visit Provider Family Medicine | DX: Z45.2 Encounter for adjustment and management of vascular access device (principal) | CPT/HCPCS: 96523 ==

== ENCOUNTER → 2024-12-03 12:56 | Outpatient (BNVA) | payer MEDICARE, SELFPAY | PROVIDERS: PCP Family Medicine; Visit Provider Nurse Practitioner Women's Health | DX: N87.1 Moderate cervical dysplasia (principal) | CPT/HCPCS: 87624 ==

== ENCOUNTER → 2025-01-04 13:08 | Outpatient (BNVA) | payer MEDICARE, SELFPAY | PROVIDERS: PCP Family Medicine; Visit Provider Nurse Practitioner Family | DX: L94.8 Other specified localized connective tissue disorders (principal); M79.3 Panniculitis, unspecified; L57.8 Other skin changes due to chronic exposure to nonionizing radiation; D22.5 Melanocytic nevi of trunk; L82.1 Other seborrheic keratosis; Z08 Encounter for follow-up examination after completed treatment for malignant neoplasm; Z85.828 Personal history of other malignant neoplasm of skin | CPT/HCPCS: 99214 ==

== ENCOUNTER → 2025-03-21 10:00 | Outpatient (BNVA) | payer MEDICARE, SELFPAY | PROVIDERS: PCP Family Medicine; Visit Provider Nurse Practitioner Family | DX: L64.8 Other androgenic alopecia (principal); S20.402A Unspecified superficial injuries of left back wall of thorax, initial encounter; M79.3 Panniculitis, unspecified; L57.8 Other skin changes due to chronic exposure to nonionizing radiation; L82.1 Other seborrheic keratosis; D22.5 Melanocytic nevi of trunk; Z08 Encounter for follow-up examination after completed treatment for malignant neoplasm; Z85.828 Personal history of other malignant neoplasm of skin; D48.5 Neoplasm of uncertain behavior of skin; L57.0 Actinic keratosis; X58.XXXA Exposure to other specified factors, initial encounter | CPT/HCPCS: 11102; 17000; 99214 ==

== ENCOUNTER → 2025-04-05 12:24 | Outpatient (BNVA) | payer MEDICARE, SELFPAY | PROVIDERS: PCP Family Medicine; Visit Provider Dermatology | DX: C44.519 Basal cell carcinoma of skin of other part of trunk (principal); L57.0 Actinic keratosis | CPT/HCPCS: 17000; 17262 ==

== ENCOUNTER 2025-04-29 10:36 | Outpatient (CLI) | payer MEDICARE, SELFPAY ==
--- NOTE | 2025-04-29 10:40 | MM_ITS ---
WS: [id number] BILATERAL SCREENING DIGITAL TOMOSYNTHESIS MAMMOGRAM WITH CAD HISTORY: Z12.31 - Encounter for screening mammogram for malignant ... COMPARISON: 04/28/2024, 01/21/2023 Bilateral CC and MLO views with tomosynthesis and synthetic mammography submitted. Computer aided detection analyzed. Breast composition: There are scattered areas of fibroglandular density. No suspicious masses, microcalcifications or architectural distortion. Benign calcifications in each breast. Prior biopsy clip in the anterior LEFT breast. MM/MM scr BI tomosynthesis [id number] IMPRESSION: BI-RADS: 2 - Benign. FOLLOW UP: 1 Year Follow-up
== END 2025-04-29 10:37 | disposition home or self-care (01) ==
LOC: RAD 10:38
PROVIDERS: PCP Family Medicine; Visit Provider Nurse Practitioner Women's Health
DX: Z12.31 Encounter for screening mammogram for malignant neoplasm of breast (principal); R92.323 Mammographic fibroglandular density, bilateral breasts; R92.1 Mammographic calcification found on diagnostic imaging of breast; Z96.89 Presence of other specified functional implants
CPT/HCPCS: 77063; 77067